=== PATIENT | male | born 1955 | race Caucasian/White ===

== ENCOUNTER → 2019-02-16 | Outpatient (CLI) | payer MEDICARE ==
[2015-12-12 11:00] VITALS: BP 129/82
[~2019-02-16] MED LIST: no home meds
== END | disposition home or self-care (01) ==
LOC: LAB 09:11
PROVIDERS: ATTEND Orthopaedic Surgery
DX: Z72.0 Tobacco use (principal); Z79.899 Other long term (current) drug therapy
CPT/HCPCS: 80307

== ENCOUNTER 2019-03-30 19:12 | Emergency (ER) | payer MEDICARE ==
[~2019-03-30] VITALS: Ht 165.1 cm; Wt 77.1 kg
[2019-03-30 20:09] LABS: BASO % 1 % (0-3); EOS # 0.2 x10^3/uL (0.0-0.7); EOS % 2 % (0-3); HEMATOCRIT 40.5 % (39.0-53.0); HEMOGLOBIN 13.5 g/dL (13.0-17.5); LYMPH # 2.4 x10^3/uL (1.0-4.8); LYMPH % 27 % (24-48); MEAN CORPUSCULAR HEMOGLOBIN 31 pg (25-35); MEAN CORPUSCULAR HGB CONC 33 g/dL (31-37); MEAN CORPUSCULAR VOLUME 93 fL (79-100); MONO # 0.7 x10^3/uL (0.0-1.1); MONO % 8 % (0-9); NEUT # 5.6 x10^3/uL (1.8-7.7); NEUT % 63 % (31-73); PLATELET COUNT 279 x10^3/uL (140-400); RED BLOOD COUNT 4.34 x10^6/uL (4.30-5.70); RED CELL DISTRIBUTION WIDTH 13.5 % (11.5-14.5); WHITE BLOOD COUNT 8.9 x10^3/uL (4.0-11.0)
[2019-03-30 20:17] LABS: CALCIUM 9.4 mg/dL (8.5-10.1); CREATININE 1.2 mg/dL (0.7-1.3); GFR 60.8; POTASSIUM 4.1 mmol/L (3.5-5.1)
[2019-03-30 20:18] LABS: PROTHROMBIN TIME PATIENT 12.2 SEC (11.7-14.0)
[2019-03-30 20:21] LABS: FECAL OB PT POSITIVE (NEG)
[2019-03-30 20:23] LABS: ALBUMIN 3.6 g/dL (3.4-5.0); ALBUMIN/GLOBULIN RATIO 1.1 (1.0-1.7); TOTAL BILIRUBIN 0.2 mg/dL (0.2-1.0)
[2019-03-30 21:00] VITALS: BP 118/77
--- NOTE | 2019-03-30 21:30 | PHYS DOC ---
Past Medical History Past Medical History: Other Additional Past Medical Histor: ulcerative colitis Past Surgical History: Cholecystectomy Alcohol Use: None Drug Use: Marijuana Adult General Chief Complaint Chief Complaint: BLOODY STOOL [facility] Patient is a 63 year old male who presents to the emergency department with complaints of diarrhea since March 122018. He states that for the last 2 weeks the diarrhea has been bloody. Patient reports a history of ulcerative colitis back in the 1980s that he took medications for until he no longer had health insurance. Patient states he had a colonoscopy 15 years ago that found no acute findings. He states that when the symptoms first began he experienced some lower abdominal cramping. Patient currently denies any pain. His only complaint is that he feels slightly fatigued. Patient states he also quit smoking cigarettes and marijuana on March 12, 2019. He denies any nausea, vomiting, fever, abdominal pain, chest pain, shortness breath, palpitations, dizziness, numbness, tingling, weakness, headaches, dysuria, hematuria, increased urinary frequency, or low back pain at this time. He currently rates his pain as 0 out of 10 on the pain scale.All other ROS is neg unless otherwise noted in HPI. Review of Systems Review of Systems See Above Allergies Allergies Allergies Coded Allergies Type Severity Reaction Last Updated Verified No Known Allergies Allergy Unknown 12/11/15 Yes Physical Exam Physical Exam See Above Constitutional: Well developed, well nourished, no acute distress, non-toxic appearance. [] HENT: Normocephalic, atraumatic, bilateral external ears normal, oropharynx moist, no oral exudates, nose normal. [] Eyes: PERRLA, EOMI, conjunctiva normal, no discharge. [] Neck: Normal range of motion, no stridor. [] Cardiovascular:Heart rate regular rhythm, no murmur [] Lungs & Thorax: Bilateral breath sounds clear to auscultation [] Abdomen: Bowel sounds normal, soft, no tenderness, no masses, no pulsatile masses. [] Skin: Warm, dry, no erythema, no rash. [] Back: No tenderness Extremities: No cyanosis, no clubbing, ROM intact, no edema. [] Neurologic: Alert and oriented X 3, no focal deficits noted. [] Psychologic: Affect normal, judgement normal, mood normal. [] Current Patient Data Vital Signs Vital Signs Date Time Temp Pulse Resp B/P (MAP) Pulse Ox O2 Delivery O2 Flow Rate FiO2 03/30/19 19:18 97.8 77 18 155/85 (108) 98 Room Air 97.8 Lab Values Laboratory Tests Test 03/30/19 19:50 03/30/19 20:00 Stool Occult Blood Positive (NEG) White Blood Count 8.9 x10^3/uL (4.0-11.0) Red Blood Count 4.34 x10^6/uL (4.30-5.70) Hemoglobin 13.5 g/dL (13.0-17.5) Hematocrit 40.5 % (39.0-53.0) Mean Corpuscular Volume 93 fL (79-100) Mean Corpuscular Hemoglobin 31 pg (25-35) Mean Corpuscular Hemoglobin Concent 33 g/dL (31-37) Red Cell Distribution Width 13.5 % (11.5-14.5) Platelet Count 279 x10^3/uL (140-400) Neutrophils (%) (Auto) 63 % (31-73) Lymphocytes (%) (Auto) 27 % (24-48) Monocytes (%) (Auto) 8 % (0-9) Eosinophils (%) (Auto) 2 % (0-3) Basophils (%) (Auto) 1 % (0-3) Neutrophils # (Auto) 5.6 x10^3/uL (1.8-7.7) Lymphocytes # (Auto) 2.4 x10^3/uL (1.0-4.8) Monocytes # (Auto) 0.7 x10^3/uL (0.0-1.1) Eosinophils # (Auto) 0.2 x10^3/uL (0.0-0.7) Basophils # (Auto) 0.0 x10^3/uL (0.0-0.2) Prothrombin Time 12.2 SEC (11.7-14.0) Prothrombin Time INR 0.9 (0.8-1.1) Sodium Level 142 mmol/L (136-145) Potassium Level 4.1 mmol/L (3.5-5.1) Chloride Level 105 mmol/L (98-107) Carbon Dioxide Level 26 mmol/L (21-32) Anion Gap 11 (6-14) Blood Urea Nitrogen 17 mg/dL (8-26) Creatinine 1.2 mg/dL (0.7-1.3) Estimated GFR (Cockcroft-Gault) 60.8 BUN/Creatinine Ratio 14 (6-20) Glucose Level 118 mg/dL (70-99) H Calcium Level 9.4 mg/dL (8.5-10.1) Total Bilirubin 0.2 mg/dL (0.2-1.0) Aspartate Amino Transferase (AST) 18 U/L (15-37) Alanine Aminotransferase (ALT) 33 U/L (16-63) Alkaline Phosphatase 87 U/L (46-116) Total Protein 7.0 g/dL (6.4-8.2) Albumin 3.6 g/dL (3.4-5.0) Albumin/Globulin Ratio 1.1 (1.0-1.7) Laboratory Tests 03/30/19 20:00 Laboratory Tests 03/30/19 20:00 EKG EKG [] Radiology/Procedures Radiology/Procedures [] Course & Med Decision Making Course & Med Decision Making Pertinent Labs and Imaging studies reviewed. (See chart for details) 2124- Talked with Dr. Gastelum about patient complaint. CBC, CMP, PT/INR are all unremarkable. Stool is positive for blood. VSS, NAD. Pt instructed to call Dr. Reyes office for follow up and further evaluation. Return to the ER if symptoms worsen. Pt verbalized an understanding of home care, medications, follow-up, and return to ED instructions and was in agreement with the plan of care. [] Dragon Disclaimer Dragon Disclaimer This electronic medical record was generated, in whole or in part, using a voice recognition dictation system. Departure Departure Impression: Primary Impression: Bloody stool Disposition: HOME, SELF-CARE Condition: STABLE Referrals: CANDIDA GASTELUM MD Patient Instructions: Bloody Stools, [id number] Additional Instructions: Call Dr. Gastelum's office for follow up. Return to the ER if your symptoms worsen. Scripts No Active Prescriptions or Reported Meds VON BROWN [employer]PER[facility]OR [facility] RO[facility] Mar 30, 2019 21:30
== END 2019-03-30 21:40 | disposition home or self-care (01) ==
LOC: ER 19:12
DX: K92.1 Melena (principal); R10.30 Lower abdominal pain, unspecified; R53.83 Other fatigue; Z87.891 Personal history of nicotine dependence; Z90.49 Acquired absence of other specified parts of digestive tract
CPT/HCPCS: 36415; 80053; 82274; 85025; 85610; 99284

== ENCOUNTER → 2019-04-21 | Outpatient (CLI) | payer MEDICARE ==
[2019-03-30 21:00] VITALS: BP 118/77
== END | disposition home or self-care (01) ==
LOC: LAB 09:11
PROVIDERS: ATTEND Orthopaedic Surgery
DX: Z72.0 Tobacco use (principal)

== ENCOUNTER → 2019-07-26 | Outpatient (CLI) | payer MEDICARE ==
[~2019-07-26] MED LIST changes: +ASPI325T8 PO
[2019-07-26 09:36] LABS: BASO % 1 % (0-3); EOS # 0.2 x10^3/uL (0.0-0.7); EOS % 2 % (0-3); HEMATOCRIT 47.9 % (39.0-53.0); HEMOGLOBIN 16.1 g/dL (13.0-17.5); LYMPH # 2.4 x10^3/uL (1.0-4.8); LYMPH % 27 % (24-48); MEAN CORPUSCULAR HEMOGLOBIN 30 pg (25-35); MEAN CORPUSCULAR HGB CONC 34 g/dL (31-37); MEAN CORPUSCULAR VOLUME 90 fL (79-100); MONO # 0.7 x10^3/uL (0.0-1.1); MONO % 8 % (0-9); NEUT # 5.6 x10^3/uL (1.8-7.7); NEUT % 63 % (31-73); PLATELET COUNT 237 x10^3/uL (140-400); RED BLOOD COUNT 5.31 x10^6/uL (4.30-5.70); RED CELL DISTRIBUTION WIDTH 13.2 % (11.5-14.5); WHITE BLOOD COUNT 8.8 x10^3/uL (4.0-11.0)
[2019-07-26 09:38] LABS: ALBUMIN 3.8 g/dL (3.4-5.0); CALCIUM 9.7 mg/dL (8.5-10.1); CREATININE 0.8 mg/dL (0.7-1.3); POTASSIUM 4.2 mmol/L (3.5-5.1)
[2019-07-26 09:58] LABS: PROTHROMBIN TIME PATIENT 12.2 SEC (11.7-14.0)
[2019-07-26 22:07] LABS: HEMOGLOBIN A1C 6.1 % (4.8-5.6)
== END | disposition home or self-care (01) ==
LOC: SURGPAT 13:02
PROVIDERS: ATTEND Orthopaedic Surgery
DX: Z01.818 Encounter for other preprocedural examination (principal); M17.12 Unilateral primary osteoarthritis, left knee
CPT/HCPCS: 36415; 80048; 82040; 82306; 83036; 85025; 85610; 85651; 85730; 87641

== ENCOUNTER → 2019-12-03 | Outpatient (CLI) | payer MEDICARE ==
[2019-08-06 05:47] VITALS: BP 134/72
[~2019-12-03] MED LIST changes: +ASPI325T11 PO; +CELE100C PO; +CEPH500C PO; +OXYC1TAB15 PO; +OXYC1TAB22 PO; +PIPE3.3734 IV; +VANC1.2514 IV; +VANC1.257 IV
[2019-12-03 11:37] LABS: BASO # 0.1 x10^3/uL (0.0-0.2); BASO % 1 % (0-3); EOS # 0.1 x10^3/uL (0.0-0.7); EOS % 1 % (0-3); HEMATOCRIT 41.9 % (39.0-53.0); HEMOGLOBIN 14.4 g/dL (13.0-17.5); LYMPH # 2.6 x10^3/uL (1.0-4.8); LYMPH % 25 % (24-48); MEAN CORPUSCULAR HEMOGLOBIN 30 pg (25-35); MEAN CORPUSCULAR HGB CONC 34 g/dL (31-37); MEAN CORPUSCULAR VOLUME 87 fL (79-100); MONO # 0.9 x10^3/uL (0.0-1.1); MONO % 8 % (0-9); NEUT # 6.9 x10^3/uL (1.8-7.7); NEUT % 65 % (31-73); PLATELET COUNT 410 x10^3/uL (140-400); RED BLOOD COUNT 4.81 x10^6/uL (4.30-5.70); RED CELL DISTRIBUTION WIDTH 13.9 % (11.5-14.5); WHITE BLOOD COUNT 10.5 x10^3/uL (4.0-11.0)
[2019-12-03 11:48] LABS: ALBUMIN 3.3 g/dL (3.4-5.0); CALCIUM 8.7 mg/dL (8.5-10.1); CREATININE 1.1 mg/dL (0.7-1.3); POTASSIUM 4.3 mmol/L (3.5-5.1)
[2019-12-03 11:50] LABS: PROTHROMBIN TIME PATIENT 12.6 SEC (11.7-14.0)
[2019-12-03 14:23] LABS: C-REACTIVE PROTEIN 21.9 mg/L (0-3.3)
[2019-12-04 01:10] LABS: HEMOGLOBIN A1C 6.5 % (4.8-5.6)
== END ==
LOC: SURGPAT 10:55
PROVIDERS: ATTEND Orthopaedic Surgery
DX: Z01.818 Encounter for other preprocedural examination (principal); Z11.59 Encounter for screening for other viral diseases; T84.54XA Infection and inflammatory reaction due to internal left knee prosthesis, initial encounter; D64.9 Anemia, unspecified; M17.12 Unilateral primary osteoarthritis, left knee; E16.2 Hypoglycemia, unspecified; Z79.899 Other long term (current) drug therapy; X58.XXXA Exposure to other specified factors, initial encounter; Y92.89 Other specified places as the place of occurrence of the external cause; Y93.89 Activity, other specified; Y99.8 Other external cause status
CPT/HCPCS: 36415; 80048; 82040; 82306; 83036; 85025; 85610; 85730; 86140; 87641; U0003

== ENCOUNTER 2019-12-07 07:07 | Inpatient (IN) | payer MEDICARE ==
[2019-12-07] VITALS (10 sets, daily range): BP systolic 117–173; BP diastolic 63–100
[~2019-12-07] VITALS: Ht 165.1 cm; Wt 78.5 kg
[~2019-12-07 07:07] MED LIST changes: +ACETAMINOPHEN 500 MG TABLET PO PRN; +CELECOXIB 100 MG CAPSULE. PO ONE; +IV RINGERS,LACTATED 1000ML 1,000 ML IV SCH; +ONDANSETRON PF 4 MG/2 ML VIAL. IV PRN; -OXYC1TAB22 PO; -PIPE3.3734 IV; +TRANEXAMIC ACID 1,000 MG in IV NS 50ML -- 1ST BAG INJ ONE; -VANC1.2514 IV; -VANC1.257 IV; +fentaNYL PF VIAL 100 MCG/2 ML VIAL IV PRN
[2019-12-07] MEDS ORDERED: TRANEXAMIC ACID 1,000 MG in IV NS 50ML -- 2ND BAG INJ ONE (08:00)
[2019-12-07] MEDS ORDERED: DEXAMETHASONE SOD PHOS 4 MG/ML VIAL ONE (08:02)
[2019-12-07] MEDS ORDERED: PROPOFOL 10 MG/ML (20ML) VIAL. IV ONE ×2 (08:02→09:30)
[2019-12-07] MEDS ORDERED: LIDOCAINE 2% PF 5 ML VIAL. ONE (08:02)
[2019-12-07] MEDS ORDERED: MIDAZOLAM HCL/PF 2 MG/2 ML VIAL. ONE (08:03)
[2019-12-07] MEDS ORDERED: ONDANSETRON PF 4 MG/2 ML VIAL. ONE (08:03)
[2019-12-07] MEDS ORDERED: fentaNYL PF VIAL 100 MCG/2 ML VIAL ONE ×4 (08:03→11:24)
--- NOTE | 2019-12-07 08:04 | NUR ---
pt took celecbrex dose at home this morning. hospital dose held.
[2019-12-07] MEDS ORDERED: TOBRAMYCIN POWDER 1.2 GM VIAL. ONE ×6 (09:17→09:18)
[2019-12-07] MEDS ORDERED: VANCOMYCIN 10GM VIAL for OR. ONE (09:18)
[2019-12-07] MEDS ORDERED: ESMOLOL 100 MG/10 ML VIAL. IVP ONE (09:50)
[2019-12-07] MEDS ORDERED: ePHEDrine PF IN SALINE 50 MG/10 ML SYRINGE. IV ONE (11:04)
--- NOTE | 2019-12-07 11:15 | PDOC4 ---
Operative Note Operative Note Date of Procedure: December 07, 2019 Pre-Op Diagnosis: Infection and inflammatory reaction due to internal left knee prosthesis ICD-10-CM Code T84.54 Post-Op Diagnosis: Infection and inflammatory reaction due to internal left knee prosthesis ICD-10-CM Code T84.54 Procedure: left knee, removal of prosthesis, total knee prosthesis, and insertion of methylmethacrylate antibiotic spacer CPT 01314 Surgeon: Jason Green MD Bead Inspector: Wm SPENCER Anesthesia: General EBL: 300 mL Specimens Obtained: Left knee synovial fluid for aerobic, anaerobic, fungal, and AFB Complications: none Drains: none Tourniquet: 40 minutes at 300 mmHg Findings: Cloudy joint fluid consistent with infection. The components were not loose. 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 Recent cultures and knee synovial aspirate were obtained in the office and showed 60,000 WBCs and microbial panel consistent with Staphylococcus and elevated C-reactive protein in the synovial fluid. The alpha defensins were elevated, consistent with infection. Final cultures are pending but the knee appears inflamed and I recommended surgical treatment before the final cultures are obtained. I recommended removal of the total knee prosthesis and placement of antibiotic spacer. This is usually done as the first stage of a two-stage revision for infection. We discussed the potential risks of surgery such as bleeding, ongoing infection, neurovascular injury, fracture, bone loss, or other potential surgical or anesthetic complications. One risk is that infection persists after this first spacer, and then another debridement and another antibiotic spacer could be needed in a couple of months. Hopefully, however the infection will clear with todays procedure and additional six seeks of intravenous antibiotics. The final stage of surgery would be removal of the spacer and final revision knee arthroplasty reimplantation. The patient stated understanding of the plan as well as the risks, benefits, and alternatives. The alternative of leaving an infected total knee in place and trying to treat it with antibiotic suppression can be life-threatening if sepsis occurs and, amputation would also be a risk with further nonoperative treatment. PROCEDURE IN DETAIL: The patient was identified in the preoperative holding area. The correct left knee was marked by me. The patient was taken to the operating room where general anesthetic was used. A tourniquet was used on the upper thigh. Preoperative antibiotics were given intravenously. A time-out procedure was performed. The limb was prepared in sterile fashion with Chloraprep solution and sterile drapes were applied with an impervious stockinette over the lower limb. All the operating team wore the personal exhaust ventilated hoods. The limb was elevated to exsanguinate it and the tourniquet was inflated to 300 mmHg. A midline incision was used. Bovie electrocautery was used for hemostasis. Sharp dissection was used. The capsule was incised sharply and inflammatory fluid was noted and this fluid was sent for cultures. The polyethylene component was removed with a Hohmann without difficulty. The femur was exposed. The edges of the femoral component were outlined with the cautery. I used a combination of straight osteotomes, reciprocating saw, and a mallet and tamp to remove the femoral component. The femoral component was was able to be removed without significant bone loss. The tibial component was removed next. Again, the osteotomes, reciprocating saw, tamp and a mallet were used. The tibial component was removed without difficulty, and with minimal bone removal. The remaining intramedullary cement from the tibia was removed. The patella was reflected. The previously resurfaced patella was cut with an oscillating saw. The plastic pegs which remained in the patellar bone were now removed with drill bits, curettes, and careful removal of the remaining cement. Devitalized bone was removed, and a synovectomy was also performed removing any abnormal-appearing synovial tissue. No remaining cement was seen, and all the cement from the intramedullary canal of the tibia was removed with cement osteotomes and a grasper. The tibial canal and the intra-articular knee joint were washed thoroughly with the [place] interpulse pump servicer supervisor and 1 L of Bactisure . Next 3 L of saline was irrigated with the Bo InterPulse pump servicer supervisor. After thorough lavage of the knee, the knee was dried thoroughly. Three packages of rally HV bone cement were hand mixed, along with 10 grams of vancomycin and 7.2 grams of tobramycin, in a hand mixing bowl. Once the cement reached the doughy stage, a cement spacer was formed, with the knee in extension. The soft tissue was reapproximated with towel clips while the cement hardened. Tranexamic acid was given intravenously. The tourniquet was released. Bovie electrocautery was used for hemostasis. The capsule was reapproximated with #1 PDS sutures. The subcutaneous tissue was closed with 2-0 PDS by my bookkeeping assistant. The skin edges were reapproximated with tomeka by my bookkeeping assistant. An Acticoat dressing was placed on the incision followed by a MARCOS single use negative pressure wound therapy dressing. There were no apparent complications. Needle and sponge counts were correct. A knee immobilizer was applied. The patient returned to the recovery room in stable condition. JASON GREEN MD Dec 07, 2019 11:15
[2019-12-07] MEDS: fentaNYL PF VIAL 100 MCG/2 ML VIAL IV PRN ×2 (11:20→11:25)
[2019-12-07] MEDS ORDERED: IV NORMAL SALINE 1000ML BAG 1,000 ML IV SCH (11:23)
--- NOTE | 2019-12-07 11:23 | PDOC1 ---
History and Physical Date of Admission Date of Admission DATE: 12/07/19 TIME: 11:16 Identification/Chief Complaint Chief Complaint Infected left total knee arthroplasty Source Source: Chart review, Patient History of Present Illness History of Present Illness Mr. Gomez had left total knee arthroplasty on 08/03/2019. There was extensive synovitis at the time of surgery, which led to a large hemarthrosis, and he was taken to the operating room on 08/06/2023 removal of the intra-articular hemat tyree. There was no evidence of infection at that time. More recently he has developed increased swelling pain and erythema. Recent office aspiration shows greater than 60,000 white blood cells, the synovial fluid is positive for alpha defensins, and the preliminary microbial panel, (I believe DNA panel) is positive for Staphylococcus. Final cultures are pending but all of his signs point to deep infection. I recommended explantation and he is here for removal of the total knee and placement of antibiotic spacer. Past Medical History Cardiovascular: No pertinent hx Pulmonary: No pertinent hx GI: No pertinent hx Heme/Onc: No pertinent hx Hepatobiliary: No pertinent hx Psych: No pertinent hx Rheumatologic: No pertinent hx Infectious disease: No pertinent hx Renal/: No pertinent hx Endocrine: No pertinent hx Past Surgical History Past Surgical History: Cholecystectomy Family History Family History: Diabetes, Heart Disease Social History ALCOHOL: none Drugs: None Current Medications Current Medications Current Medications Ondansetron HCl (Zofran) 4 mg PRN Q6HRS PRN IV NAUSEA/VOMITING; Start 12/07/19 at 07:00; Stop 12/08/19 at 06:59 Fentanyl Citrate (Fentanyl 2ml Vial) 25 mcg PRN Q5MIN PRN IV MILD PAIN 1-3; Start 12/07/19 at 07:00; Stop 12/08/19 at 06:59 Fentanyl Citrate (Fentanyl 2ml Vial) 50 mcg PRN Q5MIN PRN IV MODERATE TO SEVERE PAIN; Start 12/07/19 at 07:00; Stop 12/08/19 at 06:59 Morphine Sulfate (Morphine Sulfate) 1 mg PRN Q10MIN PRN IV SEVERE PAIN 7-10; Start 12/07/19 at 07:00; Stop 12/08/19 at 06:59 Ringer's Solution 1,000 ml @ 30 mls/hr Q24H IV Last administered on 12/07/19at 08:03; Start 12/07/19 at 07:00; Stop 12/07/19 at 18:59 Hydromorphone HCl (Dilaudid) 0.5 mg PRN Q10MIN PRN IV SEV PAIN, Second choice; Start 12/07/19 at 07:00; Stop 12/08/19 at 06:59 Prochlorperazine Edisylate (Compazine) 5 mg PACU PRN PRN IV NAUSEA, MRX1; Start 12/07/19 at 07:00; Stop 12/08/19 at 06:59 Acetaminophen (Tylenol) 1,000 mg 1X PREOP PRN PO PRIOR TO PROCEDURE Last administered on 12/07/19at 07:41; Start 12/07/19 at 06:00; Stop 12/07/19 at 18:00 Cefazolin Sodium/ Dextrose 50 ml @ 100 mls/hr 1X PREOP PRN IV PRIOR TO PRO CEDURE Last administered on 12/07/19at 08:54; Start 12/07/19 at 06:00; Stop 12/07/19 at 18:00 Tranexamic Acid 1000 mg/Sodium Chloride 60 ml @ 60 mls/hr 1X PERIOP ONCE INJ Last administered on 12/07/19at 09:10; Start 12/07/19 at 06:00; Stop 12/07/19 at 06:59; Status DC Tranexamic Acid 1000 mg/Sodium Chloride 60 ml @ 60 mls/hr 1X PERIOP ONCE INJ Last administered on 12/07/19at 10:15; Start 12/07/19 at 08:00; Stop 12/07/19 at 08:59; Status DC Celecoxib (CeleBREX) 400 mg ONCE ONCE PO ; Start 12/07/19 at 06:00; Stop 12/07/19 at 06:01; Status DC Propofol (Diprivan) 200 mg STK-MED ONCE IV ; Start 12/07/19 at 08:02; Stop 12/07/19 at 08:02; Status DC Lidocaine HCl (Lidocaine Pf 2% Vial) 5 ml STK-MED ONCE .ROUTE ; Start 12/07/19 at 08:02; Stop 12/07/19 at 08:03; Status DC Dexamethasone Sodium Phosphate (Decadron) 4 mg STK-MED ONCE .ROUTE ; Start 12/07/19 at 08:02; Stop 12/07/19 at 08:03; Status DC Ondansetron HCl (Zofran) 4 mg STK-MED ONCE .ROUTE ; Start 12/07/19 at 08:03; Stop 12/07/19 at 08:03; Status DC Midazolam HCl (Versed) 2 mg STK-MED ONCE .ROUTE ; Start 12/07/19 at 08:03; Stop 12/07/19 at 08:03; Status DC Fentanyl Citrate (Fentanyl 2ml Vial) 100 mcg STK-MED ONCE .ROUTE ; Start 12/07/19 at 08:03; Stop 12/07/19 at 08:04; Status DC Tobramycin Sulfate (Tobramycin Powder) 1.2 gm STK-MED ONCE .ROUTE Last administered on 12/07/19at 09:35; Start 12/07/19 at 09:17; Stop 12/07/19 at 09: 17; Status DC Tobramycin Sulfate (Tobramycin Powder) 1.2 gm STK-MED ONCE .ROUTE Last administered on 12/07/19at 09:35; Start 12/07/19 at 09:17; Stop 12/07/19 at 09:17; Status DC Tobramycin Sulfate (Tobramycin Powder) 1.2 gm STK-MED ONCE .ROUTE Last admi nistered on 12/07/19at 09:35; Start 12/07/19 at 09:17; Stop 12/07/19 at 09:17; Status DC Tobramycin Sulfate (Tobramycin Powder) 1.2 gm STK-MED ONCE .ROUTE Last administered on 12/07/19at 09:35; Start 12/07/19 at 09:17; Stop 12/07/19 at 09:18; Status DC Tobramycin Sulfate (Tobramycin Powder) 1.2 gm STK-MED ONCE .ROUTE Last administered on 12/07/19at 09:35; Start 12/07/19 at 09:18; Stop 12/07/19 at 09:18; Status DC Tobramycin Sulfate (Tobramycin Powder) 1.2 gm STK-MED ONCE .ROUTE Last administered on 12/07/19at 09:35; Start 12/07/19 at 09:18; Stop 12/07/19 at 09:18; Status DC Vancomycin HCl (VANCO for OR ONLY) 10 gm STK-MED ONCE .ROUTE Last administered on 12/07/19at 09:35; Start 12/07/19 at 09:18; Stop 12/07/19 at 09:19; Status DC Fentanyl Citrate (Fentanyl 2ml Vial) 100 mcg STK-MED ONCE .ROUTE ; Start 12/07/19 at 09:30; Stop 12/07/19 at 09:30; Status DC Propofol (Diprivan) 200 mg STK-MED ONCE IV ; Start 12/07/19 at 09:30; Stop 12/07/19 at 09:30; Status DC Esmolol HCl (Brevibloc) 100 mg STK-MED ONCE IVP ; Start 12/07/19 at 09:50; Stop 12/07/19 at 09:50; Status DC Fentanyl Citrate (Fentanyl 2ml Vial) 100 mcg STK-MED ONCE .ROUTE ; Start 12/07/19 at 10:06; Stop 12/07/19 at 10:06; Status DC Ephedrine Sulfate (ePHEDrine PF IN SALINE SYRINGE) 50 mg STK-MED ONCE IV ; Start 12/07/19 at 11:04; Stop 12/07/19 at 11:04; Status DC Active Scripts Active Aspirin Ec (Aspirin) 325 Mg Tablet.dr 325 Mg PO BID 30 Days take one 325 mg enteric coated aspirin by mouth twice a day for 30 days Reported Cephalexin 500 Mg Capsule 1 Cap PO QID Allergies Allergies: Coded Allergies: No Known Allergies (Verified Allergy, Unknown, 12/07/19) ROS General: No: Chills Hematological and Lymphatic: No: Blood Clots Respiratory: No: Shortness of breath Cardiovascular: No Chest Pain Musculoskeletal: Yes Joint Pain Physical Exam General: Alert, Cooperative HEENT: Atraumatic Lungs: Normal air movement Heart: RRR Extremities: Other (The left knee shows an intact total knee scar, however there is some erythema swelling and inflammation of the knee. There was no drainage. There is slight tenderness. There is no malalignment. Range of motion is still about 5 to 100 degrees without difficulty. There is a recurrent effusion. 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 I discussed his case with Dr. Valencia, infectious disease. The recommendation from Dr. Valencia as well as the recommended course based on the current literature is explantation and antibiotic spacer. There is significant infection and I do not believe irrigation and debridement with polyethylene exchange at this point would be successful. I discussed the staged procedures to the patient, with explantation and cement spacer today, and likely 6 weeks of IV antibiotics through a PICC line. I would consider reimplantation in about 2 to 3 months if future aspiration off antibiotics shows no further infection. I discussed the possibility of additional cement spacer in 2 months if infection does not appear cleared at that time. We discussed the option of chronic suppression but I do not believe that helpful for such a young patient, and the risks such as sepsis, open wounds, or even amputation. The patient stated understanding of the risks benefits and alternatives and desires to proceed with explantation of the prosthesis and antibiotic methylmethacrylate spacer today. Justicifation of Admission Dx: Justifications for Admission: Justification of Admission Dx: Yes Sepsis: Infection JASON JOSE MD Dec 07, 2019 11:23
[2019-12-07] MEDS ORDERED: PROCHLORPERAZINE 10 MG/2 ML VIAL. ONE (11:27)
[2019-12-07] MEDS ORDERED: 0.9 % SODIUM CHLORIDE 10 ML DISP.SYRIN. IV PRN (11:30)
[2019-12-07] MEDS ORDERED: MORPHINE SULFATE 4 MG/ML VIAL. IVP PRN (11:30)
[2019-12-07] MEDS ORDERED: DEXTROSE 50% 25 GM / 50ML DISP.SYRIN. IV PRN (11:30)
[2019-12-07] MEDS ORDERED: PROCHLORPERAZINE 5 MG TABLET. PO PRN (11:30)
[2019-12-07] MEDS ORDERED: diphenhydrAMINE 50 MG/ML VIAL IVP PRN (11:30)
[2019-12-07] MEDS ORDERED: METOCLOPRAMIDE HCL 10 MG/2 ML VIAL. IVP PRN (11:30)
[2019-12-07] MEDS ORDERED: MORPHINE SULFATE 2 MG/ML VIAL. IVP PRN (11:30)
[2019-12-07] MEDS ORDERED: fentaNYL PF VIAL 100 MCG/2 ML VIAL IVP PRN ×2 (11:30)
[2019-12-07] MEDS ORDERED: CALCIUM CARBONATE 500 MG TAB.CHEW PO PRN (11:30)
[2019-12-07] MEDS: MORPHINE SULFATE 2 MG/ML VIAL. IV PRN ×2 (11:40→11:50)
[2019-12-07] MEDS: PROCHLORPERAZINE 10 MG/2 ML VIAL. IV PRN ×2 (11:42→12:00)
[2019-12-07] MEDS ORDERED: HYDROmorphone 2 MG/ML VIAL ONE (11:51)
[2019-12-07] MEDS: HYDROmorphone 2 MG/ML VIAL IV PRN ×4 (11:55→12:27)
--- NOTE | 2019-12-07 12:05 | RAD ---
Examination: KNEE LEFT 2V History: Reason: POST OP / Spl. Instructions: / History: Comparison/Correlation: 08/19/2019 left knee x-ray exam Findings: Frontal and lateral views of the left knee were obtained. Soft tissue gas and midline anteriorly located skin tomeka consistent with immediate postoperative status noted. Interval removal of the left knee joint arthroplasty is evident. There is a large quantity of cement density material noted involving the tibiofemoral articulation and within the patellofemoral compartment extending superiorly into the suprapatellar bursa. The distal femur is not fully abut the cement density material at its anterior femoral condylar level. Knee joint effusion also seen. No displaced fractures are noted. Impression: Interval removal of left knee joint arthroplasty. Large cement density material is present involving the knee joint along the distribution of the procedure. Arthroplasty as well as superiorly into the suprapatellar bursal level. Electronically signed by: Arnie Garcia MD (12/07/2019 12:02 PM) [id number]
[2019-12-07] MEDS ORDERED: PROMETHAZINE 12.5 MG TABLET. PO ONE (12:30)
[2019-12-07] MEDS: oxyCODONE/APAP 10/325 1 TAB TABLET PO PRN ×2 (13:25→20:03)
[2019-12-07] MEDS: INSULIN LISPRO 300 UNITS/3 ML VIAL. SQ SCH (16:24)
[2019-12-07] MEDS: FERROUS SULFATE 325 MG TABLET. PO SCH (16:27)
[2019-12-07] MEDS: ONDANSETRON PF 4 MG/2 ML VIAL. IVP SCH (16:37)
[2019-12-07] MEDS: ONDANSETRON ODT 4 MG TAB.RAPDIS. PO SCH (16:37)
[2019-12-07] MEDS ORDERED: VANCOMYCIN 1 GM in IV NORMAL SALINE 250ML 250 ML IV SCH (17:30)
[2019-12-07] MEDS: PIPERACILLIN/TAZOBACTAM 3.375 GM in IV NORMAL SALINE 50ML 50 ML IV SCH (17:55)
[2019-12-07 18:26] LABS: BASO # 0.1 x10^3/uL (0.0-0.2); BASO % 1 % (0-3); EOS % 0 % (0-3); HEMATOCRIT 39.9 % (39.0-53.0); HEMOGLOBIN 13.5 g/dL (13.0-17.5); LYMPH # 0.9 x10^3/uL (1.0-4.8); LYMPH % 7 % (24-48); MEAN CORPUSCULAR HEMOGLOBIN 30 pg (25-35); MEAN CORPUSCULAR HGB CONC 34 g/dL (31-37); MEAN CORPUSCULAR VOLUME 88 fL (79-100); MONO # 0.2 x10^3/uL (0.0-1.1); MONO % 2 % (0-9); NEUT # 11.4 x10^3/uL (1.8-7.7); NEUT % 91 % (31-73); PLATELET COUNT 345 x10^3/uL (140-400); RED BLOOD COUNT 4.54 x10^6/uL (4.30-5.70); RED CELL DISTRIBUTION WIDTH 13.7 % (11.5-14.5); WHITE BLOOD COUNT 12.5 x10^3/uL (4.0-11.0)
[2019-12-07] MEDS ORDERED: VANCOMYCIN 2 GM in IV NORMAL SALINE 500ML BAG 500 ML IV ONE (18:30)
[2019-12-07 18:40] LABS: CALCIUM 8.2 mg/dL (8.5-10.1); CREATININE 1.3 mg/dL (0.7-1.3); GFR 55.2; POTASSIUM 4.6 mmol/L (3.5-5.1)
[2019-12-07 18:44] LABS: ALBUMIN 2.9 g/dL (3.4-5.0); ALBUMIN/GLOBULIN RATIO 0.8 (1.0-1.7); C-REACTIVE PROTEIN 9.9 mg/L (0-3.3); TOTAL BILIRUBIN 0.1 mg/dL (0.2-1.0); TOTAL PROTEIN 6.7 g/dL (6.4-8.2)
[2019-12-07 18:57] LABS: % BANDS 9 % (0-9); % LYMPHS 1 % (24-48); % MONOS 2 % (0-10); % SEGS 88 % (35-66); PLT ESTIMATE ADEQUATE (ADEQUATE)
[2019-12-07] MEDS: ASPIRIN ENTERIC COATED 325 MG TABLET.DR. PO SCH (20:03)
[2019-12-07] MEDS: ZOLPIDEM 5 MG TABLET. PO PRN (20:53)
[2019-12-07] MEDS: VANCOMYCIN PER PHARMACY MC PRN (21:03)
--- NOTE | 2019-12-07 21:03 | NUR ---
Pharmacy Vancomycin Dosing Note S:Consulted to monitor and dose vancomycin started 12/07/19. O:SUKH ÁLVAREZ is a 64 year old M with PJI . Height: 5 feet, 5 inches Weight: 78.944996 kg Plato Body Weight: 61.50 Adjusted Body Weight: 68.10 Dosing Weight: Actual Other Antibiotics: ZOSYN LABS: Last BUN: Last Creatinine: 1.3 Creatinine Clearance: 53 mL/min Last WBC: Last Procalcitonin: Tmax (past 24 hours): Microbiology: I/O: Drug Levels: Last level: on at Last dose given 12/07/19 at 2100 Vancomycin Dosing: Loading Dose: 2000 mg x1 Dosing Weight: Actual Target Trough: 15-20 A: Based on: WEIGHT, CRCL~52 P: 1. INITIATE Vancomycin 1250 mg IV q12h AFTER 2000 MG LOADING DOSE 2. Follow up Trough level on 12/09/19 at 0830 3. Pharmacy will continue to monitor, follow and adjust therapy as needed. SHAYNA BASS [facility], 12/07/19 [id number]
[2019-12-08] MEDS: PIPERACILLIN/TAZOBACTAM 3.375 GM in IV NORMAL SALINE 50ML 50 ML IV SCH ×5 (00:10→23:43)
[2019-12-08 03:00] VITALS: BP 102/63
[2019-12-08 05:05] LABS: BASO % 0 % (0-3); EOS % 0 % (0-3); HEMOGLOBIN 11.7 g/dL (13.0-17.5); LYMPH # 1.1 x10^3/uL (1.0-4.8); LYMPH % 8 % (24-48); MEAN CORPUSCULAR HEMOGLOBIN 29 pg (25-35); MEAN CORPUSCULAR HGB CONC 33 g/dL (31-37); MEAN CORPUSCULAR VOLUME 88 fL (79-100); MONO # 0.7 x10^3/uL (0.0-1.1); MONO % 5 % (0-9); NEUT # 12.1 x10^3/uL (1.8-7.7); NEUT % 86 % (31-73); PLATELET COUNT 304 x10^3/uL (140-400); RED BLOOD COUNT 3.99 x10^6/uL (4.30-5.70)
[2019-12-08] MEDS: oxyCODONE/APAP 10/325 1 TAB TABLET PO PRN ×4 (05:46→22:27)
[2019-12-08] MEDS: ONDANSETRON PF 4 MG/2 ML VIAL. IVP SCH ×3 (06:00→12:00)
[2019-12-08] MEDS ORDERED: MAGNESIUM HYDROXIDE 2,400 MG/30 ML ORAL.SUSP. PO PRN (06:00)
[2019-12-08] MEDS: ONDANSETRON ODT 4 MG TAB.RAPDIS. PO SCH ×3 (06:00→12:00)
[2019-12-08 06:20] LABS: ALBUMIN 2.5 g/dL (3.4-5.0); ALBUMIN/GLOBULIN RATIO 0.8 (1.0-1.7); CALCIUM 7.9 mg/dL (8.5-10.1); CREATININE 1.1 mg/dL (0.7-1.3); POTASSIUM 4.2 mmol/L (3.5-5.1); TOTAL BILIRUBIN 0.1 mg/dL (0.2-1.0); TOTAL PROTEIN 5.8 g/dL (6.4-8.2)
[2019-12-08 07:15] VITALS: BP 130/71
[2019-12-08] MEDS: INSULIN LISPRO 300 UNITS/3 ML VIAL. SQ SCH ×3 (08:00→17:00)
[2019-12-08] MEDS: VANCOMYCIN 1.25 GM in IV NORMAL SALINE 250ML 250 ML IV SCH ×2 (08:06→20:46)
[2019-12-08] MEDS: SENNOSIDES/DOCUSATE 8.6/50MG TABLET. PO SCH (08:09)
[2019-12-08] MEDS: MULTIVITAMIN with MINERAL TABLET. PO SCH (08:10)
[2019-12-08] MEDS: CELECOXIB 100 MG CAPSULE. PO SCH (08:10)
[2019-12-08] MEDS: FERROUS SULFATE 325 MG TABLET. PO SCH ×2 (08:10→17:00)
[2019-12-08] MEDS: ASPIRIN ENTERIC COATED 325 MG TABLET.DR. PO SCH ×2 (08:10→20:46)
--- NOTE | 2019-12-08 09:43 | PDOC ---
Infectious Disease Note Subjective: Subjective Patient seen and examined ID consult dictated Vital Signs: Vital Signs Vital Signs Date Time Temp Pulse Resp B/P (MAP) Pulse Ox O2 Delivery O2 Flow Rate FiO2 12/08/19 08:00 Room Air 12/08/19 07:15 98.0 68 20 130/71 (90) 96 98.0 12/07/19 16:13 2.0 Medications: Inpatient Meds: Current Medications Medications (Trade) Dose Ordered Sig/Taryn Start Time Stop Time Status Last Admin Dose Admin Acetaminophen (Tylenol) 1,000 mg 1X PREOP PRN 12/07/19 06:00 12/07/19 18:00 DC 12/07/19 07:41 1,000 MG Aspirin (Ecotrin) 325 mg BID 12/07/19 21:00 12/08/19 08:10 325 MG Bisacodyl (Dulcolax Supp) 10 mg 1X PRN PRN 12/08/19 16:00 12/09/19 15:59 Calcium Carbonate/ Glycine (Tums) 500 mg PRN QID PRN 12/07/19 11:30 Cefazolin Sodium/ Dextrose 50 ml @ 100 mls/hr Q6H 12/07/19 15:00 12/07/19 17:40 DC 12/07/19 14:52 100 MLS/HR Celecoxib (CeleBREX) 200 mg DAILY 12/08/19 09:00 01/07/20 08:59 12/08/19 08:10 200 MG Dexamethasone Sodium Phosphate (Decadron) 4 mg STK-MED ONCE 12/07/19 08:02 12/07/19 08:03 DC Dextrose (Dextrose 50%-Water Syringe) 12.5 gm PRN Q15MIN PRN 12/07/19 11:30 Diphenhydramine HCl (Benadryl) 25 mg PRN Q6HRS PRN 12/07/19 11:30 Ephedrine Sulfate (ePHEDrine PF IN SALINE SYRINGE) 50 mg STK-MED ONCE 12/07/19 11:04 12/07/19 11:04 DC Esmolol HCl (Brevibloc) 100 mg STK-MED ONCE 12/07/19 09:50 12/07/19 09:50 DC Fentanyl Citrate (Fentanyl 2ml Vial) 50 mcg PRN Q1HR PRN 12/07/19 11:30 Ferrous Sulfate (Feosol) 325 mg BIDWMEALS 12/07/19 17:00 12/08/19 08:10 325 MG Hydromorphone HCl (Dilaudid) 2 mg STK-MED ONCE 12/07/19 11:51 12/07/19 11:51 DC Insulin Human Lispro (HumaLOG) 0-7 UNITS TIDWMEALS 12/07/19 17:00 Lidocaine HCl (Lidocaine Pf 2% Vial) 5 ml STK-MED ONCE 12/07/19 08:02 12/07/19 08:03 DC Magnesium Hydroxide (Milk Of Magnesia) 2,400 mg 1X PRN PRN 12/08/19 06:00 12/09/19 05:59 Metoclopramide HCl (Reglan Vial) 10 mg PRN Q4HRS PRN 12/07/19 11:30 Midazolam HCl (Versed) 2 mg STK-MED ONCE 12/07/19 08:03 12/07/19 08:03 DC Morphine Sulfate (Morphine Sulfate) 4 mg PRN Q1HR PRN 12/07/19 11:30 Multivitamins (Thera M Plus) 1 tab DAILY 12/08/19 09:00 12/08/19 08:10 1 TAB Ondansetron HCl (Zofran Odt) 4 mg PRN Q6HRS PRN 12/08/19 12:00 Ondansetron HCl (Zofran) 4 mg PRN Q6HRS PRN 12/08/19 12:00 Oxycodone/ Acetaminophen (Percocet 10/325) 2 tab PRN Q4HRS PRN 12/07/19 12:00 12/08/19 05:46 2 TAB Piperacillin Sod/ Tazobactam Sod 3.375 gm/Sodium Chloride 50 ml @ 100 mls/hr Q6HRS 12/07/19 18:00 12/08/19 05:40 100 MLS/HR Prochlorperazine Edisylate (Compazine) 10 mg STK-MED ONCE 12/07/19 11:27 12/07/19 11:27 DC Prochlorperazine Maleate (Compazine) 10 mg PRN Q4HRS PRN 12/07/19 11:30 Promethazine HCl (Phenergan) 25 mg 1X ONCE 12/07/19 12:30 12/07/19 12:31 DC Propofol (Diprivan) 200 mg STK-MED ONCE 12/07/19 09:30 12/07/19 09:30 DC Ringer's Solution 1,000 ml @ 30 mls/hr Q24H 12/07/19 07:00 12/07/19 18:59 DC 12/07/19 08:03 30 MLS/HR Senna/Docusate Sodium (Senna Plus) 1 tab DAILY 12/08/19 09:00 12/08/19 08:09 1 TAB Sodium Chloride (Normal Saline Flush) 10 ml QSHIFT PRN 12/07/19 11:30 Tobramycin Sulfate (Tobramycin Powder) 1.2 gm STK-MED ONCE 12/07/19 09:18 12/07/19 09:18 DC 12/07/19 09:35 1.2 GM Tranexamic Acid 1000 mg/Sodium Chloride 60 ml @ 60 mls/hr 1X PERIOP ONCE 12/07/19 08:00 12/07/19 08:59 DC 12/07/19 10:15 60 MLS/HR Vancomycin HCl (VANCO for OR ONLY) 10 gm STK-MED ONCE 12/07/19 09:18 12/07/19 09:19 DC 12/07/19 09:35 10 GM Vancomycin HCl (Vanco Per Pharmacy) 1 each PRN DAILY PRN 12/07/19 17:45 12/07/19 21:03 1 EACH Vancomycin HCl (Vancomycin Trough Level) 1 each 1X ONCE 12/09/19 08:30 12/09/19 08:31 Vancomycin HCl 1.25 gm/Sodium Chloride 250 ml @ 167 mls/hr Q12H 12/08/19 09:00 12/08/19 08:06 167 MLS/HR Vancomycin HCl 1 gm/Sodium Chloride 250 ml @ 250 mls/hr Q12H 12/07/19 17:30 UNV Vancomycin HCl 2 gm/Sodium Chloride 500 ml @ 250 mls/hr ONCE ONCE 12/07/19 18:30 12/07/19 20:29 DC 12/07/19 20:46 250 MLS/HR Zolpidem Tartrate (Ambien) 5 mg PRN QHS PRN 12/07/19 11:30 12/07/19 20:53 5 MG Labs: Lab Laboratory Tests Test 12/07/19 16:22 12/07/19 18:15 12/07/19 20:35 12/08/19 04:09 Glucose (Fingerstick) 144 mg/dL (70-99) 226 mg/dL (70-99) White Blood Count 12.5 x10^3/uL (4.0-11.0) 14.0 x10^3/uL (4.0-11.0) Red Blood Count 4.54 x10^6/uL (4.30-5.70) 3.99 x10^6/uL (4.30-5.70) Hemoglobin 13.5 g/dL (13.0-17.5) 11.7 g/dL (13.0-17.5) Hematocrit 39.9 % (39.0-53.0) 35.0 % (39.0-53.0) Mean Corpuscular Volume 88 fL (79-100) 88 fL (79-100) Mean Corpuscular Hemoglobin 30 pg (25-35) 29 pg (25-35) Mean Corpuscular Hemoglobin Concent 34 g/dL (31-37) 33 g/dL (31-37) Red Cell Distribution Width 13.7 % (11.5-14.5) 14.0 % (11.5-14.5) Platelet Count 345 x10^3/uL (140-400) 304 x10^3/uL (140-400) Neutrophils (%) (Auto) 91 % (31-73) 86 % (31-73) Lymphocytes (%) (Auto) 7 % (24-48) 8 % (24-48) Monocytes (%) (Auto) 2 % (0-9) 5 % (0-9) Eosinophils (%) (Auto) 0 % (0-3) 0 % (0-3) Basophils (%) (Auto) 1 % (0-3) 0 % (0-3) Neutrophils # (Auto) 11.4 x10^3/uL (1.8-7.7) 12.1 x10^3/uL (1.8-7.7) Lymphocytes # (Auto) 0.9 x10^3/uL (1.0-4.8) 1.1 x10^3/uL (1.0-4.8) Monocytes # (Auto) 0.2 x10^3/uL (0.0-1.1) 0.7 x10^3/uL (0.0-1.1) Eosinophils # (Auto) 0.0 x10^3/uL (0.0-0.7) 0.0 x10^3/uL (0.0-0.7) Basophils # (Auto) 0.1 x10^3/uL (0.0-0.2) 0.0 x10^3/uL (0.0-0.2) Segmented Neutrophils % 88 % (35-66) Band Neutrophils % 9 % (0-9) Lymphocytes % 1 % (24-48) Monocytes % 2 % (0-10) Platelet Estimate Adequate (ADEQUATE) Sodium Level 136 mmol/L (136-145) 137 mmol/L (136-145) Potassium Level 4.6 mmol/L (3.5-5.1) 4.2 mmol/L (3.5-5.1) Chloride Level 101 mmol/L (98-107) 103 mmol/L (98-107) Carbon Dioxide Level 27 mmol/L (21-32) 25 mmol/L (21-32) Anion Gap 8 (6-14) 9 (6-14) Blood Urea Nitrogen 12 mg/dL (8-26) 13 mg/dL (8-26) Creatinine 1.3 mg/dL (0.7-1.3) 1.1 mg/dL (0.7-1.3) Estimated GFR (Cockcroft-Gault) 55.2 67.0 BUN/Creatinine Ratio 9 (6-20) 12 (6-20) Glucose Level 194 mg/dL (70-99) 147 mg/dL (70-99) Calcium Level 8.2 mg/dL (8.5-10.1) 7.9 mg/dL (8.5-10.1) Total Bilirubin 0.1 mg/dL (0.2-1.0) 0.1 mg/dL (0.2-1.0) Aspartate Amino Transf (AST/SGOT) 18 U/L (15-37) 16 U/L (15-37) Alanine Aminotransferase (ALT/SGPT) 23 U/L (16-63) 19 U/L (16-63) Alkaline Phosphatase 85 U/L (46-116) 74 U/L (46-116) C-Reactive Protein, Quantitative 9.9 mg/L (0-3.3) Total Protein 6.7 g/dL (6.4-8.2) 5.8 g/dL (6.4-8.2) Albumin 2.9 g/dL (3.4-5.0) 2.5 g/dL (3.4-5.0) Albumin/Globulin Ratio 0.8 (1.0-1.7) 0.8 (1.0-1.7) Test 12/08/19 07:11 Glucose (Fingerstick) 159 mg/dL (70-99) Objective: Assessment: Left total knee arthroplasty explantation of hardware with antibiotic spacer placement December 07, 2019 Status post synovial aspirate left prosthetic joint 11/25/[address] Benjamin's office Left DJD Leukocytosis Anemia DJD Poor dentition Plan: Plan of Care Continue IV Vanco and Zosyn Monitor renal functions close Vancomycin dosing per pharmacy protocol Follow-up intraoperative cultures Wound care as directed discussed with nursing staff Thank you ARVIND PRIEST MD Dec 08, 2019 09:43
--- NOTE | 2019-12-08 10:00 | NUR ---
Pt got up with therapy and dressing saturated dripping down leg. MARCOS dressing removed. Incision cleansed with ChloraPrep, 4x4, ABD dressing, Kerlix, curtis wrapped and with immobilizer brace. Cont. monitor.
[2019-12-08 11:00] VITALS: BP_SYST 111; BP_SYST 143; BP_DIAS 64; BP_DIAS 66
[2019-12-08] MEDS: VANCOMYCIN PER PHARMACY MC PRN (11:24)
[2019-12-08] MEDS ORDERED: ONDANSETRON PF 4 MG/2 ML VIAL. IVP PRN (12:00)
[2019-12-08] MEDS ORDERED: ONDANSETRON ODT 4 MG TAB.RAPDIS. PO PRN (12:00)
[2019-12-08 14:55] VITALS: BP 134/90
[2019-12-08] MEDS ORDERED: BISACODYL 10 MG SUPP.RECT. PR PRN (16:00)
--- NOTE | 2019-12-08 16:55 | PDOC ---
PROGRESS NOTES Subjective Subjective Feeling ok. We discussed his elevated blood sugars yesterday. Dr. Watson his primary care doctor had mentioned that he was running some high sugars at times as an outpatient. Objective Vital Signs Vital Signs Date Time Temp Pulse Resp B/P (MAP) Pulse Ox O2 Delivery O2 Flow Rate FiO2 12/08/19 14:55 98.6 58 18 134/90 (105) 97 Room Air 98.6 12/07/19 16:13 2.0 Physical Exam Dressing had quite a bit of bloody drainage was changed. The calf is soft and nontender. Neurovascularly intact. Labs Laboratory Tests Test 12/07/19 16:22 12/07/19 18:15 12/07/19 20:35 12/08/19 04:09 Glucose (Fingerstick) 144 mg/dL (70-99) 226 mg/dL (70-99) White Blood Count 12.5 x10^3/uL (4.0-11.0) 14.0 x10^3/uL (4.0-11.0) Red Blood Count 4.54 x10^6/uL (4.30-5.70) 3.99 x10^6/uL (4.30-5.70) Hemoglobin 13.5 g/dL (13.0-17.5) 11.7 g/dL (13.0-17.5) Hematocrit 39.9 % (39.0-53.0) 35.0 % (39.0-53.0) Mean Corpuscular Volume 88 fL (79-100) 88 fL (79-100) Mean Corpuscular Hemoglobin 30 pg (25-35) 29 pg (25-35) Mean Corpuscular Hemoglobin Concent 34 g/dL (31-37) 33 g/dL (31-37) Red Cell Distribution Width 13.7 % (11.5-14.5) 14.0 % (11.5-14.5) Platelet Count 345 x10^3/uL (140-400) 304 x10^3/uL (140-400) Neutrophils (%) (Auto) 91 % (31-73) 86 % (31-73) Lymphocytes (%) (Auto) 7 % (24-48) 8 % (24-48) Monocytes (%) (Auto) 2 % (0-9) 5 % (0-9) Eosinophils (%) (Auto) 0 % (0-3) 0 % (0-3) Basophils (%) (Auto) 1 % (0-3) 0 % (0-3) Neutrophils # (Auto) 11.4 x10^3/uL (1.8-7.7) 12.1 x10^3/uL (1.8-7.7) Lymphocytes # (Auto) 0.9 x10^3/uL (1.0-4.8) 1.1 x10^3/uL (1.0-4.8) Monocytes # (Auto) 0.2 x10^3/uL (0.0-1.1) 0.7 x10^3/uL (0.0-1.1) Eosinophils # (Auto) 0.0 x10^3/uL (0.0-0.7) 0.0 x10^3/uL (0.0-0.7) Basophils # (Auto) 0.1 x10^3/uL (0.0-0.2) 0.0 x10^3/uL (0.0-0.2) Segmented Neutrophils % 88 % (35-66) Band Neutrophils % 9 % (0-9) Lymphocytes % 1 % (24-48) Monocytes % 2 % (0-10) Platelet Estimate Adequate (ADEQUATE) Sodium Level 136 mmol/L (136-145) 137 mmol/L (136-145) Potassium Level 4.6 mmol/L (3.5-5.1) 4.2 mmol/L (3.5-5.1) Chloride Level 101 mmol/L (98-107) 103 mmol/L (98-107) Carbon Dioxide Level 27 mmol/L (21-32) 25 mmol/L (21-32) Anion Gap 8 (6-14) 9 (6-14) Blood Urea Nitrogen 12 mg/dL (8-26) 13 mg/dL (8-26) Creatinine 1.3 mg/dL (0.7-1.3) 1.1 mg/dL (0.7-1.3) Estimated GFR (Cockcroft-Gault) 55.2 67.0 BUN/Creatinine Ratio 9 (6-20) 12 (6-20) Glucose Level 194 mg/dL (70-99) 147 mg/dL (70-99) Calcium Level 8.2 mg/dL (8.5-10.1) 7.9 mg/dL (8.5-10.1) Total Bilirubin 0.1 mg/dL (0.2-1.0) 0.1 mg/dL (0.2-1.0) Aspartate Amino Transf (AST/SGOT) 18 U/L (15-37) 16 U/L (15-37) Alanine Aminotransferase (ALT/SGPT) 23 U/L (16-63) 19 U/L (16-63) Alkaline Phosphatase 85 U/L (46-116) 74 U/L (46-116) C-Reactive Protein, Quantitative 9.9 mg/L (0-3.3) Total Protein 6.7 g/dL (6.4-8.2) 5.8 g/dL (6.4-8.2) Albumin 2.9 g/dL (3.4-5.0) 2.5 g/dL (3.4-5.0) Albumin/Globulin Ratio 0.8 (1.0-1.7) 0.8 (1.0-1.7) Test 12/08/19 07:11 12/08/19 11:38 12/08/19 16:50 Glucose (Fingerstick) 159 mg/dL (70-99) 105 mg/dL (70-99) 90 mg/dL (70-99) Laboratory Tests Test 12/07/19 18:15 12/07/19 20:35 12/08/19 04:09 12/08/19 07:11 White Blood Count 12.5 x10^3/uL (4.0-11.0) 14.0 x10^3/uL (4.0-11.0) Red Blood Count 4.54 x10^6/uL (4.30-5.70) 3.99 x10^6/uL (4.30-5.70) Hemoglobin 13.5 g/dL (13.0-17.5) 11.7 g/dL (13.0-17.5) Hematocrit 39.9 % (39.0-53.0) 35.0 % (39.0-53.0) Mean Corpuscular Volume 88 fL (79-100) 88 fL (79-100) Mean Corpuscular Hemoglobin 30 pg (25-35) 29 pg (25-35) Mean Corpuscular Hemoglobin Concent 34 g/dL (31-37) 33 g/dL (31-37) Red Cell Distribution Width 13.7 % (11.5-14.5) 14.0 % (11.5-14.5) Platelet Count 345 x10^3/uL (140-400) 304 x10^3/uL (140-400) Neutrophils (%) (Auto) 91 % (31-73) 86 % (31-73) Lymphocytes (%) (Auto) 7 % (24-48) 8 % (24-48) Monocytes (%) (Auto) 2 % (0-9) 5 % (0-9) Eosinophils (%) (Auto) 0 % (0-3) 0 % (0-3) Basophils (%) (Auto) 1 % (0-3) 0 % (0-3) Neutrophils # (Auto) 11.4 x10^3/uL (1.8-7.7) 12.1 x10^3/uL (1.8-7.7) Lymphocytes # (Auto) 0.9 x10^3/uL (1.0-4.8) 1.1 x10^3/uL (1.0-4.8) Monocytes # (Auto) 0.2 x10^3/uL (0.0-1.1) 0.7 x10^3/uL (0.0-1.1) Eosinophils # (Auto) 0.0 x10^3/uL (0.0-0.7) 0.0 x10^3/uL (0.0-0.7) Basophils # (Auto) 0.1 x10^3/uL (0.0-0.2) 0.0 x10^3/uL (0.0-0.2) Segmented Neutrophils % 88 % (35-66) Band Neutrophils % 9 % (0-9) Lymphocytes % 1 % (24-48) Monocytes % 2 % (0-10) Platelet Estimate Adequate (ADEQUATE) Sodium Level 136 mmol/L (136-145) 137 mmol/L (136-145) Potassium Level 4.6 mmol/L (3.5-5.1) 4.2 mmol/L (3.5-5.1) Chloride Level 101 mmol/L (98-107) 103 mmol/L (98-107) Carbon Dioxide Level 27 mmol/L (21-32) 25 mmol/L (21-32) Anion Gap 8 (6-14) 9 (6-14) Blood Urea Nitrogen 12 mg/dL (8-26) 13 mg/dL (8-26) Creatinine 1.3 mg/dL (0.7-1.3) 1.1 mg/dL (0.7-1.3) Estimated GFR (Cockcroft-Gault) 55.2 67.0 BUN/Creatinine Ratio 9 (6-20) 12 (6-20) Glucose Level 194 mg/dL (70-99) 147 mg/dL (70-99) Calcium Level 8.2 mg/dL (8.5-10.1) 7.9 mg/dL (8.5-10.1) Total Bilirubin 0.1 mg/dL (0.2-1.0) 0.1 mg/dL (0.2-1.0) Aspartate Amino Transf (AST/SGOT) 18 U/L (15-37) 16 U/L (15-37) Alanine Aminotransferase (ALT/SGPT) 23 U/L (16-63) 19 U/L (16-63) Alkaline Phosphatase 85 U/L (46-116) 74 U/L (46-116) C-Reactive Protein, Quantitative 9.9 mg/L (0-3.3) Total Protein 6.7 g/dL (6.4-8.2) 5.8 g/dL (6.4-8.2) Albumin 2.9 g/dL (3.4-5.0) 2.5 g/dL (3.4-5.0) Albumin/Globulin Ratio 0.8 (1.0-1.7) 0.8 (1.0-1.7) Glucose (Fingerstick) 226 mg/dL (70-99) 159 mg/dL (70-99) Test 12/08/19 11:38 12/08/19 16:50 Glucose (Fingerstick) 105 mg/dL (70-99) 90 mg/dL (70-99) Imaging Report reviewed and images independently reviewed. Satisfactory cement spacer. I believe the time of surgery this was all within full contact of the femur but does not appear fully stuck to the femur at this time. This should not affect the antibiotic elution, and the patient remained in full extension with a knee immobilizer for gait today without difficulty. Assessment Assessment POD#1 after total knee explantation. The outpatient cultures showed staph epidermidis. The cell count was quite high, and other factors tested from the outpatient aspiration are consistent with deep prosthetic infection. He will require 6 weeks of IV antibiotics, regardless of the current operative cultures. Plan Plan of Care I will order a PICC line. He will require 6 weeks of IV antibiotics regardless of the current culture results. He might be able to go home tomorrow if ID is satisfied with the previous culture result sensitivities. I am going to order another hemoglobin A1c. If elevated I would consider hospitalist consult and treatment for elevated glucose. The patient agrees with that plan. Justicifation of Admission Dx: Justifications for Admission: Justification of Admission Dx: Yes Sepsis: Infection JASON JOSE MD Dec 08, 2019 16:54
[2019-12-08 19:00] VITALS: BP 137/87
[2019-12-08] MEDS: LACTOBACILLUS RHAMNOSUS GG 1 CAPSULE. PO SCH (20:46)
[2019-12-08 23:00] VITALS: BP 139/7
[2019-12-08] MEDS: ZOLPIDEM 5 MG TABLET. PO PRN (23:46)
--- NOTE | 2019-12-09 01:12 | CONS ---
DATE OF CONSULTATION: 12/08/2019 REFERRING PHYSICIAN: Rei Green MD REASON FOR CONSULTATION: Antibiotic management for infected left total knee arthroplasty. HISTORY OF PRESENT ILLNESS: A 64-year-old male with history of left knee osteoarthritis who underwent left total knee arthroplasty on 08/03/[address] Green. The patient underwent I and D for removal of intra-articular hematoma on 08/09/2019. The patient had been on Keflex for a couple of months, which he ran out about a month ago. Since 3 weeks, he started noticing increasing swelling, pain and erythema to a degree that he had difficulty with ambulation. He denies any fevers, chills, nausea, vomiting, diarrhea, abdominal pain. He underwent a synovial aspiration on 11/25/2019 from the left knee, which showed alpha defensin positive, CRP 21.4, RBC 17,000, total nucleated cells 60,145, neutrophil percent 96, Synovasure neutrophil elastase positive. No crystals identified. Synovasure microbial ID panel positive for Staphylococcus, negative for P. acne, Tiffanie panel and Enterococcus panel. Fluid culture prelim reports, no growth to date. Dr. Green recommended explantation with hardware removal of the total knee and placement of antibiotic spacer, which he underwent yesterday with removal of total knee prosthesis and insertion of methyl methacrylate antibiotic spacer, which had 10 grams of vancomycin and 7.2 grams of tobramycin. I got baseline labs on the patient yesterday and started him on empiric IV vancomycin and Zosyn. The patient received intraoperative and postoperative cefazolin, which I discontinued. Today, the patient says pain is under control. He denies any fevers, chills, nausea, vomiting, diarrhea, abdominal pain, shortness of breath, headache, sore throat, rash, or other joint pain. PAST MEDICAL HISTORY: None. PAST SURGICAL HISTORY: Cholecystectomy in 2009, left knee arthroplasty 08/03/2019 and followup I and D on 08/06/2019 with a hematoma. SOCIAL HISTORY: The patient was a smoker, quit smoking 2019 for knee replacement surgery. No alcohol. 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 FAMILY HISTORY: As per HPI. CURRENT MEDICATIONS: IV vancomycin and Zosyn. Other medications reviewed in medication list. Bisacodyl, Zofran, celecoxib, senna, multivitamin, magnesium hydroxide, aspirin, insulin, ferrous sulfate, oxycodone, calcium carbonate, zolpidem, metoclopramide, prochlorperazine p.r.n., diphenhydramine. REVIEW OF SYSTEMS: Negative except for above in HPI. PHYSICAL EXAMINATION: VITAL SIGNS: Temperature 98, pulse 68, respiratory rate 20, blood pressure 130/71, oxygen saturation 96% on room air. GENERAL: Alert and oriented x 3 male lying in bed comfortably, in no acute distress. HEENT: Normocephalic, atraumatic, anicteric. No thrush. Poor dentition. LUNGS: Clear bilaterally. No wheezing. NECK: Supple, no JVD. NO LAD, NO JVD HEART: S1, S2. No gallops or murmurs. ABDOMEN: Soft, nontender, nondistended. EXTREMITIES: Left knee dressing and brace in place, did not take it down due to recent postop. Moves toes. Right lower extremity without edema, clubbing or cyanosis. DERMATOLOGIC: Warm, dry. No generalized rash. Multiple tattoos. NEUROLOGIC: Alert and oriented x 3, grossly nonfocal. PSYCHIATRIC: Cooperative, appropriate mood and affect. LABORATORY DATA: WBC 14, was 12.5; hemoglobin 11.7; hematocrit 35; platelets 304; neutrophil 86%. Sodium 137, potassium 4.2, chloride 103, bicarbonate 25, BUN 13, creatinine 1.1, glucose 147, calcium 7.9, albumin 2.5. COVID-19 negative. Synovasure microbial panel positive for Staphylococcus. Fluid culture negative from 11/25/2019. Synovasure 11/25/2019, alpha defensin positive. CRP 21.4, RBC 17,000, [place] [address], neutrophil 96%. Synovasure neutrophil elastase positive. Crystals, none found. IMPRESSION: 1. Left prosthetic joint infection, status post synovial aspirate by Dr. Green, 11/25/2019, with abnormal Synovasure results as above. Faxed copy in chart. Panel shows Staphylococcus.Cultures reported negative so far. No crystals identified. 2. Status post left knee explantation with antibiotic spacer placement on 12/07/2019, Cultures pending at this time. 3. History of left total knee arthroplasty, 08/03/2019. 4. Status post incision and drainage for hematoma in 08/09/2019. The patient was on p.o. Keflex since last surgery until a month ago. 6. Left knee degenerative joint disease, status post cortisone injections and viscous supplementation in the past. 7. Status post cholecystectomy. 8. Leukocytosis, likely postoperative. 9. Anemia, likely acute blood loss. 10. Hypoglycemia. 11. Poor dentition. RECOMMENDATIONS: 1. Continue IV vancomycin and Zosyn. 2. Follow up renal functions closely. 3. Vancomycin dosing and adjustment per pharmacy protocol. 4. Follow up intraoperative cultures. 5. Local wound care as directed. Discussed with nursing staff. Thank you, Dr. Green, for consulting Infectious Disease to participate in this patient's care. If you have any questions, do not hesitate to contact me. ARVIND PRIEST MD DR: FRANCOIS/regina JOB#: [id number] / [id number] ISHAAN
[2019-12-09 03:00] VITALS: BP 150/82
[2019-12-09] MEDS: PIPERACILLIN/TAZOBACTAM 3.375 GM in IV NORMAL SALINE 50ML 50 ML IV SCH ×3 (05:54→17:43)
[2019-12-09 07:15] VITALS: BP 115/54
[2019-12-09] MEDS: INSULIN LISPRO 300 UNITS/3 ML VIAL. SQ SCH ×3 (07:59→17:00)
[2019-12-09] MEDS: FERROUS SULFATE 325 MG TABLET. PO SCH ×2 (08:18→17:42)
[2019-12-09] MEDS: LACTOBACILLUS RHAMNOSUS GG 1 CAPSULE. PO SCH ×2 (08:18→21:00)
[2019-12-09] MEDS: MULTIVITAMIN with MINERAL TABLET. PO SCH (08:19)
[2019-12-09] MEDS: oxyCODONE/APAP 10/325 1 TAB TABLET PO PRN ×3 (08:19→22:30)
[2019-12-09] MEDS: SENNOSIDES/DOCUSATE 8.6/50MG TABLET. PO SCH (08:19)
[2019-12-09] MEDS: ASPIRIN ENTERIC COATED 325 MG TABLET.DR. PO SCH ×2 (08:20→21:00)
[2019-12-09] MEDS: CELECOXIB 100 MG CAPSULE. PO SCH (08:22)
[2019-12-09 09:22] LABS: HEMATOCRIT 38.4 % (39.0-53.0); HEMOGLOBIN 12.8 g/dL (13.0-17.5)
[2019-12-09 09:51] LABS: VANC TR 14.4 mcg/mL (10.0-20.0)
[2019-12-09] MEDS: VANCOMYCIN 1.25 GM in IV NORMAL SALINE 250ML 250 ML IV SCH ×2 (09:52→21:00)
[2019-12-09 11:12] VITALS: BP 142/69
[2019-12-09] MEDS: VANCOMYCIN PER PHARMACY MC PRN (11:53)
--- NOTE | 2019-12-09 11:55 | NUR ---
Pharmacy Vancomycin Dosing Note S: Consulted to monitor and dose vancomycin started 12/07/19. O: SUKH ÁLVAREZ is a 64 year old M with PJI . Other Antibiotics: ZOSYN LABS: Last BUN: 13 Last Creatinine: 1.1 Creatinine Clearance: 64 mL/min Last WBC: 14 Last Procalcitonin: -- Tmax (past 24 hours): AFEBRILE Microbiology: 12/06: synovial fluid: no organisms seen Last Trough level: 14.4 on 12/09/19 at 0830 Vancomycin Dosing: Dosing Weight: Actual Target Trough: 15-20 A: Based on: THERAPEUTIC TROUGH P: 1. Continue Vancomycin 1250 mg IV q12h 2. Follow up Trough level in 5-7 days or if renal function changes 3. Pharmacy will continue to monitor, follow and adjust therapy as needed. NEVAEH MURRAY RPH, 12/09/19 [id number]
--- NOTE | 2019-12-09 13:35 | PDOC ---
Infectious Disease Note Subjective Subjective Comfortable, denies much knee pain No F/C/N/V/SOA ROS ROS as mentioned above Vital Sign Vital Signs Vital Signs Date Time Temp Pulse Resp B/P (MAP) Pulse Ox O2 Delivery O2 Flow Rate FiO2 12/09/19 11:12 97.8 57 18 142/69 (93) 97 Room Air 97.8 Physical Exam PHYSICAL EXAM GENERAL: Sitting in the chair, legs elevated, alert in NAD HEENT: No thrush. Poor dentition. LUNGS: Clear bilaterally. No wheezing. NECK: Supple HEART: S1, S2. ABDOMEN: Soft, nontender EXTREMITIES: Left knee dressing and brace in place, did not take it down. DP + Right lower extremity without edema, clubbing or cyanosis. DERMATOLOGIC: Warm, dry. No generalized rash. Multiple tattoos. NEUROLOGIC: Alert and oriented x 3, grossly nonfocal. PSYCHIATRIC: Cooperative, appropriate mood and affect. PIV Labs Lab Laboratory Tests Test 12/08/19 16:50 12/08/19 20:44 12/09/19 07:21 12/09/19 08:40 Glucose (Fingerstick) 90 mg/dL (70-99) 152 mg/dL (70-99) 93 mg/dL (70-99) Hemoglobin 12.8 g/dL (13.0-17.5) Hematocrit 38.4 % (39.0-53.0) Mean Corpuscular Hemoglobin Concent 34 g/dL (31-37) Vancomycin Level Trough 14.4 mcg/mL (10.0-20.0) Vancomycin Last Dose Date 12/08/19 Vancomycin Last Dose Time 2100 Test 12/09/19 11:22 Glucose (Fingerstick) 89 mg/dL (70-99) Micro 12/06. Synovial fluid GRAM STAIN Final Final NO ORGANISMS SEEN. SQUAMOUS EPI CELL:NOT APPLICABLE PMN (WBCs):MODERATE ANAEROBIC-AEROBIC CULTURE Preliminary Preliminary No Growth on 12/09/19 at 1126 Objective Assessment Left prosthetic joint infection, -s/p synovial aspirate by Dr. Green, 11/25/2019. Synovasure panel positive for staphylococcus. No crystals identified. Culture + MRSE Status post left knee explantation with antibiotic spacer placement on 12/07/2019, Intra-op cultures neg to date History of left total knee arthroplasty, 08/03/2019. Status post incision and drainage for hematoma in 08/09/2019. The patient was on p.o. Keflex since last surgery until a month ago. Left knee degenerative joint disease, status post cortisone injections and viscous supplementation in the past. Status post cholecystectomy. Leukocytosis, likely postoperative. Anemia, likely acute blood loss. Hypoglycemia. Poor dentition. Plan Plan of Care Zosyn Vancomycin dosing per pharmacy protocol. Trough 14.4 Monitor renal functions closely Probiotics Follow-up intraoperative cultures, neg so far Wound care as directed PICC in [facility] 11/24 COCO sen to Gent/Zyvox/Tetracycline/Clinda f/u cult D/w Attending Co-Sign Attending Co-Sign The patient was seen and interviewed as well as examined at the bedside. The chart was reviewed. The case was discussed. Agree with the plan of care. BINDU CASEY APRN Dec 09, 2019 13:35 HERB MCKINNON MD Dec 09, 2019 18:40
[2019-12-09] MEDS ORDERED: LIDOCAINE WITH 8.4% SOD BICARB 3 ML DISP.SYRIN. ONE (14:35)
[2019-12-09 15:00] VITALS: BP 149/90
[2019-12-09] MEDS ORDERED: LIDOCAINE WITH 8.4% SOD BICARB 3 ML DISP.SYRIN. INJ ONE (15:30)
--- NOTE | 2019-12-09 15:47 | RAD ---
Procedure: Upper extremity PICC line placement Clinical Indication: Adult male requiring antibiotic infusion therapy Sedation: Local anesthesia only was provided Antibiotics: None Fluoro Time: 1 minute, images: 1 Contrast: None Sterility: All elements of maximal sterile barrier technique including the use of a cap, mask, sterile gown, sterile gloves, large sterile sheet, appropriate hand hygiene, and 2% chlorhexidine for cutaneous antisepsis (or acceptable alternative antiseptic per current guidelines) were followed for this procedure. Consent: The procedure was explained in its entirety to the patient or the patients designated medical office representative by a member of the treatment team, including a discussion of the risks, benefits and commonly accepted alternatives to the procedure, as well as the expected consequences of no therapy whatsoever. Discussion of the risks included, but was not limited to, those that are most frequent and those that are rare but possibly severe or life-threatening, as well as the possibility of unforeseen complications. Technique and Findings: Following informed consent, the patient was prepped and draped in the usual sterile fashion. Ultrasound interrogation of the right arm revealed patency and compressibility of the right basilic vein. A hard copy ultrasound image was recorded. 1% Lidocaine was used to achieve local anesthesia and a 21-gauge micropuncture needle was used to gain access to the targeted vein. The needle was exchanged over wire for a 5 Italian peel-away sheath which was used to deploy a PICC line under fluoroscopic guidance such that the distal tip resided at the cavoatrial junction. The catheter flushed and aspirated with ease and was sutured to the skin. Complications: No immediate Impression: 1. Ultrasound guided PICC line placement as described.
--- NOTE | 2019-12-09 16:55 | PDOC ---
PROGRESS NOTES Subjective Subjective He and his nurse report that he was distressed and upset earlier today because his insurance company is refusing to pay for outpatient intravenous antibiotics. He is feeling better now but is still concerned. Objective Vital Signs Vital Signs Date Time Temp Pulse Resp B/P (MAP) Pulse Ox O2 Delivery O2 Flow Rate FiO2 12/09/19 15:00 97.3 60 20 149/90 (109) 98 Room Air 97.3 12/07/19 16:13 2.0 Physical Exam There was bloody drainage again but the dressing was changed and the dressing is now dry. The calf is soft and nontender. The knee immobilizer is in place. Labs Laboratory Tests Test 12/07/19 18:15 12/07/19 20:35 12/08/19 04:09 12/08/19 07:11 White Blood Count 12.5 x10^3/uL (4.0-11.0) 14.0 x10^3/uL (4.0-11.0) Red Blood Count 4.54 x10^6/uL (4.30-5.70) 3.99 x10^6/uL (4.30-5.70) Hemoglobin 13.5 g/dL (13.0-17.5) 11.7 g/dL (13.0-17.5) Hematocrit 39.9 % (39.0-53.0) 35.0 % (39.0-53.0) Mean Corpuscular Volume 88 fL (79-100) 88 fL (79-100) Mean Corpuscular Hemoglobin 30 pg (25-35) 29 pg (25-35) Mean Corpuscular Hemoglobin Concent 34 g/dL (31-37) 33 g/dL (31-37) Red Cell Distribution Width 13.7 % (11.5-14.5) 14.0 % (11.5-14.5) Platelet Count 345 x10^3/uL (140-400) 304 x10^3/uL (140-400) Neutrophils (%) (Auto) 91 % (31-73) 86 % (31-73) Lymphocytes (%) (Auto) 7 % (24-48) 8 % (24-48) Monocytes (%) (Auto) 2 % (0-9) 5 % (0-9) Eosinophils (%) (Auto) 0 % (0-3) 0 % (0-3) Basophils (%) (Auto) 1 % (0-3) 0 % (0-3) Neutrophils # (Auto) 11.4 x10^3/uL (1.8-7.7) 12.1 x10^3/uL (1.8-7.7) Lymphocytes # (Auto) 0.9 x10^3/uL (1.0-4.8) 1.1 x10^3/uL (1.0-4.8) Monocytes # (Auto) 0.2 x10^3/uL (0.0-1.1) 0.7 x10^3/uL (0.0-1.1) Eosinophils # (Auto) 0.0 x10^3/uL (0.0-0.7) 0.0 x10^3/uL (0.0-0.7) Basophils # (Auto) 0.1 x10^3/uL (0.0-0.2) 0.0 x10^3/uL (0.0-0.2) Segmented Neutrophils % 88 % (35-66) Band Neutrophils % 9 % (0-9) Lymphocytes % 1 % (24-48) Monocytes % 2 % (0-10) Platelet Estimate Adequate (ADEQUATE) Sodium Level 136 mmol/L (136-145) 137 mmol/L (136-145) Potassium Level 4.6 mmol/L (3.5-5.1) 4.2 mmol/L (3.5-5.1) Chloride Level 101 mmol/L (98-107) 103 mmol/L (98-107) Carbon Dioxide Level 27 mmol/L (21-32) 25 mmol/L (21-32) Anion Gap 8 (6-14) 9 (6-14) Blood Urea Nitrogen 12 mg/dL (8-26) 13 mg/dL (8-26) Creatinine 1.3 mg/dL (0.7-1.3) 1.1 mg/dL (0.7-1.3) Estimated GFR (Cockcroft-Gault) 55.2 67.0 BUN/Creatinine Ratio 9 (6-20) 12 (6-20) Glucose Level 194 mg/dL (70-99) 147 mg/dL (70-99) Calcium Level 8.2 mg/dL (8.5-10.1) 7.9 mg/dL (8.5-10.1) Total Bilirubin 0.1 mg/dL (0.2-1.0) 0.1 mg/dL (0.2-1.0) Aspartate Amino Transf (AST/SGOT) 18 U/L (15-37) 16 U/L (15-37) Alanine Aminotransferase (ALT/SGPT) 23 U/L (16-63) 19 U/L (16-63) Alkaline Phosphatase 85 U/L (46-116) 74 U/L (46-116) C-Reactive Protein, Quantitative 9.9 mg/L (0-3.3) Total Protein 6.7 g/dL (6.4-8.2) 5.8 g/dL (6.4-8.2) Albumin 2.9 g/dL (3.4-5.0) 2.5 g/dL (3.4-5.0) Albumin/Globulin Ratio 0.8 (1.0-1.7) 0.8 (1.0-1.7) Glucose (Fingerstick) 226 mg/dL (70-99) 159 mg/dL (70-99) Test 12/08/19 11:38 12/08/19 12:46 12/08/19 16:50 12/08/19 20:44 Glucose (Fingerstick) 105 mg/dL (70-99) 90 mg/dL (70-99) 152 mg/dL (70-99) Urine Cotinine Positive ng/mL (Ilpvtv=229) Drug Screen Comment Comment (.) Test 12/09/19 07:21 12/09/19 08:40 12/09/19 11:22 12/09/19 16:38 Glucose (Fingerstick) 93 mg/dL (70-99) 89 mg/dL (70-99) 82 mg/dL (70-99) Hemoglobin 12.8 g/dL (13.0-17.5) Hematocrit 38.4 % (39.0-53.0) Mean Corpuscular Hemoglobin Concent 34 g/dL (31-37) Vancomycin Level Trough 14.4 mcg/mL (10.0-20.0) Vancomycin Last Dose Date 12/08/19 Vancomycin Last Dose Time 2100 Laboratory Tests Test 12/08/19 20:44 12/09/19 07:21 12/09/19 08:40 12/09/19 11:22 Glucose (Fingerstick) 152 mg/dL (70-99) 93 mg/dL (70-99) 89 mg/dL (70-99) Hemoglobin 12.8 g/dL (13.0-17.5) Hematocrit 38.4 % (39.0-53.0) Mean Corpuscular Hemoglobin Concent 34 g/dL (31-37) Vancomycin Level Trough 14.4 mcg/mL (10.0-20.0) Vancomycin Last Dose Date 12/08/19 Vancomycin Last Dose Time 2100 Test 12/09/19 16:38 Glucose (Fingerstick) 82 mg/dL (70-99) Assessment Assessment POD# 2 after total knee explant and antibiotic spacer. Operative cultures still negative, but the prior cultures showed staph epidermidis sensitive to antibiotics except for erythromycin and oxacillin. Plan Plan of Care Discharge planning, IV antibiotics. Social work consult. His most recent hemog lobin A1c was 6.5. I may ask the hospitalist to visit with him and see if we could start him on metformin or other oral hypoglycemic. Justicifation of Admission Dx: Justifications for Admission: Justification of Admission Dx: Yes Sepsis: Infection JASON JOSE MD Dec 09, 2019 16:55
[2019-12-09 19:00] VITALS: BP 143/92
[2019-12-09] MEDS: ZOLPIDEM 5 MG TABLET. PO PRN (22:30)
[2019-12-09 23:01] VITALS: BP 139/88
[2019-12-10 01:08] LABS: HEMOGLOBIN A1C 6.5 % (4.8-5.6)
[2019-12-10 03:04] VITALS: BP 132/87
[2019-12-10 04:37] LABS: HEMATOCRIT 37.9 % (39.0-53.0); HEMOGLOBIN 12.6 g/dL (13.0-17.5)
[2019-12-10] MEDS: PIPERACILLIN/TAZOBACTAM 3.375 GM in IV NORMAL SALINE 50ML 50 ML IV SCH ×4 (06:28→16:52)
[2019-12-10 07:00] VITALS: BP 161/82
[2019-12-10] MEDS: INSULIN LISPRO 300 UNITS/3 ML VIAL. SQ SCH ×3 (08:00→16:34)
[2019-12-10] MEDS: ASPIRIN ENTERIC COATED 325 MG TABLET.DR. PO SCH ×2 (08:25→21:27)
[2019-12-10] MEDS: LACTOBACILLUS RHAMNOSUS GG 1 CAPSULE. PO SCH ×2 (08:25→21:28)
[2019-12-10] MEDS: CELECOXIB 100 MG CAPSULE. PO SCH (08:25)
[2019-12-10] MEDS: oxyCODONE/APAP 10/325 1 TAB TABLET PO PRN ×4 (08:25→21:28)
[2019-12-10] MEDS: SENNOSIDES/DOCUSATE 8.6/50MG TABLET. PO SCH (08:26)
[2019-12-10] MEDS: FERROUS SULFATE 325 MG TABLET. PO SCH ×2 (08:26→16:52)
[2019-12-10] MEDS: MULTIVITAMIN with MINERAL TABLET. PO SCH (08:26)
[2019-12-10] MEDS: VANCOMYCIN 1.25 GM in IV NORMAL SALINE 250ML 250 ML IV SCH ×2 (08:45→21:28)
[2019-12-10 11:00] VITALS: BP 158/77
--- NOTE | 2019-12-10 11:12 | PDOC ---
Infectious Disease Note Subjective Subjective Comfortable, denies increase knee pain Getting ready to take a walker with physical therapy No F/C/N/V/SOA ROS ROS as mentioned above Vital Sign Vital Signs Vital Signs Date Time Temp Pulse Resp B/P (MAP) Pulse Ox O2 Delivery O2 Flow Rate FiO2 12/10/19 09:17 95 Room Air 12/10/19 07:00 98.4 62 18 161/82 (108) 98.4 12/09/19 20:00 2.0 Physical Exam PHYSICAL EXAM GENERAL: Sitting in the chair, legs elevated, alert in NAD HEENT: Oral cavity pink, moist. No thrush. Poor dentition. LUNGS: Clear bilaterally. No wheezing. NECK: Supple HEART: S1, S2. ABDOMEN: Soft, nontender EXTREMITIES: Left knee dressing and brace in place, did not take it down. DP + Right lower extremity without edema, clubbing or cyanosis. DERMATOLOGIC: Warm, dry. No generalized rash. Multiple tattoos. NEUROLOGIC: Alert and oriented x 3, grossly nonfocal. PSYCHIATRIC: Cooperative, appropriate mood and affect. RUE-PICC (12/08) without signs of complications Labs Lab Laboratory Tests Test 12/09/19 11:22 12/09/19 16:38 12/09/19 21:04 12/10/19 03:30 Glucose (Fingerstick) 89 mg/dL (70-99) 82 mg/dL (70-99) 142 mg/dL (70-99) Hemoglobin 12.6 g/dL (13.0-17.5) Hematocrit 37.9 % (39.0-53.0) Mean Corpuscular Hemoglobin Concent 33 g/dL (31-37) Test 12/10/19 07:34 Glucose (Fingerstick) 94 mg/dL (70-99) Micro 6/30. Synovial fluid GRAM STAIN Final Final NO ORGANISMS SEEN. SQUAMOUS EPI CELL:NOT APPLICABLE PMN (WBCs):MODERATE ANAEROBIC-AEROBIC CULTURE Preliminary Preliminary No Growth on 12/09/19 at 1126 AFB CULTURE FINAL PENDING AFB CULTURE GRAM STAIN Final Negative FUNGAL CULTURE,OTHER PENDING JONATAN CULT RES 1 PENDING Objective Assessment Left prosthetic joint infection, -s/p synovial aspirate by Dr. Green, 11/25/2019. Synovasure panel positive for staphylococcus. No crystals identified. Culture + MRSE (S- Gent/Zyvox/Tetracycline/Clinda). Status post left knee explantation with antibiotic spacer placement on 12/07/2019, Intra-op cultures neg to date History of left total knee arthroplasty, 08/03/2019. Status post incision and drainage for hematoma in 08/09/2019. The patient was on p.o. Keflex since last surgery until a month ago. Left knee degenerative joint disease, status post cortisone injections and viscous supplementation in the past. Status post cholecystectomy. Leukocytosis, likely postoperative. Anemia, likely acute blood loss. Hypoglycemia. Poor dentition. Plan Plan of Care Continue Zosyn Vancomycin dosing per pharmacy protocol. Trough 14.4 Monitor renal functions closely Probiotics Follow-up intraoperative cultures, neg so far Wound care as directed SNF plans underway Had loose stool after MOM and colace Labs in am Attending Co-Sign Attending Co-Sign The patient was seen and interviewed as well as examined at the bedside. The chart was reviewed. The case was discussed. Agree with the plan of care. BINDU CASEY APRN Dec 10, 2019 11:12 HERB MCKINNON MD Dec 10, 2019 16:09
--- NOTE | 2019-12-10 12:10 | CONS ---
DATE OF CONSULTATION: 12/10/2019 INTERNAL MEDICINE CONSULTATION CHIEF COMPLAINT: Infected knee, request for postop medical evaluation and treatment of comorbidities. HISTORY OF PRESENT ILLNESS: The patient is a pleasant 64-year-old male who underwent a total knee arthroplasty on 08/03/2019. He also underwent an incision and drainage for removal of intra-articular hematoma on 08/09/2019. He has been on Keflex for a couple of months. He has been noticing some increasing pain and swelling. There was some concern it could still be infected, so he was taken for left knee removal of prosthesis and total knee prosthesis and insertion of antibiotic spacer 3 days ago. We have been requested for postop medical evaluation and treatment of comorbidities. PAST MEDICAL HISTORY: Cholecystectomy, arthritis, degenerative joint disease, knee replacement, knee infection. ALLERGIES: None. FAMILY HISTORY: Diabetes. SOCIAL HISTORY: He does not drink, smoke or take drugs. He quit smoking in 2019. 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 MEDICATIONS: Reviewed, please refer to the MRAD. REVIEW OF SYSTEMS: GENERAL: No history of weight change, weakness or fevers. SKIN: No bruising, hair changes or rashes. EYES: No blurred, double or loss of vision. NOSE AND THROAT: No history of nosebleeds, hoarseness or sore throat. HEART: No history of palpitations, chest pain or shortness of breath on exertion. LUNGS: Denies cough, hemoptysis, wheezing or shortness of breath. GASTROINTESTINAL: Denies changes in appetite, nausea, vomiting, diarrhea or constipation. GENITOURINARY: No history of frequency, urgency, hesitancy or nocturia. NEUROLOGIC: Denies history of numbness, tingling, tremor or weakness. PSYCHIATRIC: No history of panic, anxiety or depression. ENDOCRINE: No history of heat or cold intolerance, polyuria or polydipsia. EXTREMITIES: He complains of left knee pain. PHYSICAL EXAMINATION: VITALS: Within normal limits and are stable. GENERAL: No apparent distress. Alert and oriented. HEENT: Normal cephalic atraumatic, external auditory canals are patent EYES: Extraocular muscles are intact, pupils are equally round and reactive to light and accommodation MUSCULOSKELETAL: Well developed, well nourished, good range of motion ENDOCRINE: No thyromegaly was palpated LYMPHATICS: No cervical chain or axillary nodes were noted HEMATOPOIETIC: No bruising NECK: Supple, no JVD, no thyromegaly was noted. LUNGS: Clear to auscultation in all lung birch without rhonchi or wheezing. HEART: RRR, S1, S2 present. Peripheral pulses intact, no obvious murmurs were noted. ABDOMEN: Soft, nontender. Positive bowel sounds no organomegaly, normal bowel sounds. EXTREMITIES: The left knee is in a clean, dry, and intact brace. NEUROLOGIC: Normal speech, normal tone. A & O x3, moves all extremities, no obvious focal deficits. PSYCHIATRIC: Normal affect, normal mood. Stable. SKIN: No ulcerations or rashes, good skin turgor, no jaundice. VASCULAR: Good capillary refill, neurovascular bundle appears to be intact. LABORATORY DATA: White count on 12/08/2019 was 14, hemoglobin this morning was 12.6. Electrolytes are pending. ASSESSMENT AND PLAN: Postoperative day #3, removal of the knee hardware with antibiotic spacer placement in a middle-aged male with the above noted comorbidities. For now, continue IV antibiotics. Infectious Disease has also been consulted. I have reviewed their note and agreed with their input. P.r.n., pain meds, home meds, DVT prophylaxis. Full code. We will order a fresh set of labs for the morning. counseling services manager consult for possible skilled. Thank you very much for allowing us to participate in the care of this nice gentleman. JENN HOLLIDAY DO DR: IESHA/regina JOB#: [id number] / [id number] Rei Nassar MD
[2019-12-10] MEDS: VANCOMYCIN PER PHARMACY MC PRN (12:43)
[2019-12-10 15:00] VITALS: BP 140/77
--- NOTE | 2019-12-10 17:09 | PDOC ---
PROGRESS NOTES Subjective Subjective Problems overnight:Comfortable, pain controlled Objective Vital Signs Vital Signs Date Time Temp Pulse Resp B/P (MAP) Pulse Ox O2 Delivery O2 Flow Rate FiO2 12/10/19 16:52 97 Room Air 12/10/19 15:00 97.6 55 18 140/77 (98) 97.6 12/09/19 20:00 2.0 Physical Exam Bloody drainage at midpoint of wound over patella, wound well approximated, N/V/I Labs Laboratory Tests Test 12/08/19 20:44 12/09/19 07:21 12/09/19 08:40 12/09/19 11:22 Glucose (Fingerstick) 152 mg/dL (70-99) 93 mg/dL (70-99) 89 mg/dL (70-99) Hemoglobin 12.8 g/dL (13.0-17.5) Hematocrit 38.4 % (39.0-53.0) Mean Corpuscular Hemoglobin Concent 34 g/dL (31-37) Hemoglobin A1c 6.5 % (4.8-5.6) Vancomycin Level Trough 14.4 mcg/mL (10.0-20.0) Vancomycin Last Dose Date 12/08/19 Vancomycin Last Dose Time 2100 Test 12/09/19 16:38 12/09/19 21:04 12/10/19 03:30 12/10/19 07:34 Glucose (Fingerstick) 82 mg/dL (70-99) 142 mg/dL (70-99) 94 mg/dL (70-99) Hemoglobin 12.6 g/dL (13.0-17.5) Hematocrit 37.9 % (39.0-53.0) Mean Corpuscular Hemoglobin Concent 33 g/dL (31-37) Test 12/10/19 11:44 12/10/19 16:23 Glucose (Fingerstick) 91 mg/dL (70-99) 90 mg/dL (70-99) Laboratory Tests Test 12/09/19 21:04 12/10/19 03:30 12/10/19 07:34 12/10/19 11:44 Glucose (Fingerstick) 142 mg/dL (70-99) 94 mg/dL (70-99) 91 mg/dL (70-99) Hemoglobin 12.6 g/dL (13.0-17.5) Hematocrit 37.9 % (39.0-53.0) Mean Corpuscular Hemoglobin Concent 33 g/dL (31-37) Test 12/10/19 16:23 Glucose (Fingerstick) 90 mg/dL (70-99) Assessment Assessment POD# explant knee with spacer Plan Plan of Care Await word on rehab for IV Abx Dressing changed Mobilize lightly Justicifation of Admission Dx: Justifications for Admission: Justification of Admission Dx: Yes (IV antibiotics wound care and rehab placement concerns) Sepsis: Infection AMARIS CARTER MD Dec 10, 2019 17:09
[2019-12-10 19:00] VITALS: BP 128/89
[2019-12-10] MEDS: ZOLPIDEM 5 MG TABLET. PO PRN (21:28)
[2019-12-10 23:00] VITALS: BP 138/76
[2019-12-11 03:00] VITALS: BP 148/77
[2019-12-11 04:28] LABS: HEMATOCRIT 36.6 % (39.0-53.0); HEMOGLOBIN 12.2 g/dL (13.0-17.5)
[2019-12-11 04:44] LABS: GFR 74.8
[2019-12-11] MEDS: PIPERACILLIN/TAZOBACTAM 3.375 GM in IV NORMAL SALINE 50ML 50 ML IV SCH ×4 (06:02→17:57)
[2019-12-11 07:59] VITALS: BP 145/80
[2019-12-11] MEDS: INSULIN LISPRO 300 UNITS/3 ML VIAL. SQ SCH ×3 (08:00→17:00)
[2019-12-11] MEDS: MULTIVITAMIN with MINERAL TABLET. PO SCH (08:44)
[2019-12-11] MEDS: FERROUS SULFATE 325 MG TABLET. PO SCH ×2 (08:44→17:57)
[2019-12-11] MEDS: SENNOSIDES/DOCUSATE 8.6/50MG TABLET. PO SCH (08:44)
[2019-12-11] MEDS: CELECOXIB 100 MG CAPSULE. PO SCH (08:45)
[2019-12-11] MEDS: ASPIRIN ENTERIC COATED 325 MG TABLET.DR. PO SCH ×2 (08:45→20:46)
[2019-12-11] MEDS: LACTOBACILLUS RHAMNOSUS GG 1 CAPSULE. PO SCH ×2 (08:46→20:46)
[2019-12-11] MEDS: VANCOMYCIN 1.25 GM in IV NORMAL SALINE 250ML 250 ML IV SCH ×2 (08:52→20:47)
--- NOTE | 2019-12-11 09:58 | SNU/HH DC ---
DISCHARGE ORDERS DISCHARGE INFORMATION: DISCHARGE DATE: Dec 11, 2019 FINAL DIAGNOSIS Left prosthetic knee infection status post explantation and placement antibiotic spacer CONDITION ON DISCHARGE: Stable CODE STATUS: Code Status: Full DETENTION: SNF STAY <30 DAYS: Yes POST DISCHARGE ORDERS: ACTIVITY ORDERS: Other, see below (Weightbearing as tolerated with immobilizer for support) WEIGHT BEARING STATUS: As tolerated (With knee immobilizer for support) DIET AFTER DISCHARGE: ADA WOUND/INCISION CARE: Change dressing (Daily dressing changes, currently using Xeroform gauze ABD and Marcus wrap) CHECKS AFTER DISCHARGE: CHECKS AFTER DISCHARGE: Check blood sugar, ac/hs FOLLOW-UP: PHYSICIAN FOLLOW-UP: Dr. Green 1 to 2 weeks LAB ORDERS FOR FOLLOW-UP: Per infectious disease directions TREATMENT/EQUIPMENT ORDERS: INFUSION EQUIPMENT NEEDED: PICC Line (IV antibiotics per infectious disease directions) Physical Therapy For: Evalulation/Treatment DISCHARGE MEDICATIONS: Home Meds Active Scripts Aspirin (ASPIRIN EC) 325 Mg Tablet.dr, 325 MG PO BID for prevent blood clots for 30 Days, #60 TAB.SR take one 325 mg enteric coated aspirin by mouth twice a day for 30 days Prov:JASON GREEN MD 08/07/19 Reported Medications Cephalexin (CEPHALEXIN) 500 Mg Capsule, 1 CAP PO QID for knee infection, #40 CAP 12/03/19 AMARIS CARTER MD Dec 11, 2019 09:58
[2019-12-11] MEDS ORDERED: OXYC1TAB22 PO (10:19)
--- NOTE | 2019-12-11 10:27 | PDOC ---
PROGRESS NOTES Subjective Subjective Problems overnight: Pain well controlled no complaints Objective Vital Signs Vital Signs Date Time Temp Pulse Resp B/P (MAP) Pulse Ox O2 Delivery O2 Flow Rate FiO2 12/11/19 07:59 98.2 62 18 145/80 (101) 92 Room Air 98.2 12/10/19 19:52 2.0 Physical Exam Drainage at midpoint of incision bloody in nature, dressings changed with Chl oraPrep swab peripherally Xeroform 4 x 4's ABD pads and Marcus wrap, distal neurovascular status intact Labs Laboratory Tests Test 12/09/19 11:22 12/09/19 16:38 12/09/19 21:04 12/10/19 03:30 Glucose (Fingerstick) 89 mg/dL (70-99) 82 mg/dL (70-99) 142 mg/dL (70-99) Hemoglobin 12.6 g/dL (13.0-17.5) Hematocrit 37.9 % (39.0-53.0) Mean Corpuscular Hemoglobin Concent 33 g/dL (31-37) Test 12/10/19 07:34 12/10/19 11:44 12/10/19 16:23 12/10/19 20:52 Glucose (Fingerstick) 94 mg/dL (70-99) 91 mg/dL (70-99) 90 mg/dL (70-99) 123 mg/dL (70-99) Test 12/11/19 03:17 12/11/19 07:17 Hemoglobin 12.2 g/dL (13.0-17.5) Hematocrit 36.6 % (39.0-53.0) Mean Corpuscular Hemoglobin Concent 33 g/dL (31-37) Creatinine 1.0 mg/dL (0.7-1.3) Estimated GFR (Cockcroft-Gault) 74.8 Glucose (Fingerstick) 89 mg/dL (70-99) Laboratory Tests Test 12/10/19 11:44 12/10/19 16:23 12/10/19 20:52 12/11/19 03:17 Glucose (Fingerstick) 91 mg/dL (70-99) 90 mg/dL (70-99) 123 mg/dL (70-99) Hemoglobin 12.2 g/dL (13.0-17.5) Hematocrit 36.6 % (39.0-53.0) Mean Corpuscular Hemoglobin Concent 33 g/dL (31-37) Creatinine 1.0 mg/dL (0.7-1.3) Estimated GFR (Cockcroft-Gault) 74.8 Test 12/11/19 07:17 Glucose (Fingerstick) 89 mg/dL (70-99) Assessment Assessment POD#explantation total knee prosthesis with antibiotic spacer left knee Plan Plan of Care Plan discharge today to [facility] near [facility] Discharge instructions written, Percocet prescription provided, IV antibiotics and associated testing per infectious disease Follow-up Dr. Peña 1 to 2 weeks call office for appointment Justicifation of Admission Dx: Justifications for Admission: Justification of Admission Dx: Yes (Finalizing rehab placement issues with IV antibiotics today and discharge instructions written) Sepsis: Infection AMARIS CARTER MD Dec 11, 2019 10:27
[2019-12-11 11:59] VITALS: BP 140/88
--- NOTE | 2019-12-11 11:59 | PDOC ---
Infectious Disease Note Subjective Subjective Comfortable, denies increase knee pain Dressing changed earlier by ortho. Some bloody drainage noted. + diarrhea after taking Milk of mag the other day. No F/C/N/V/cramps or loss of appetite ROS ROS as mentioned above Vital Sign Vital Signs Vital Signs Date Time Temp Pulse Resp B/P (MAP) Pulse Ox O2 Delivery O2 Flow Rate FiO2 12/11/19 08:00 Room Air 12/11/19 07:59 98.2 62 18 145/80 (101) 92 98.2 12/10/19 19:52 2.0 Physical Exam PHYSICAL EXAM GENERAL: Sitting in the chair, legs elevated, alert in NAD HEENT: Oral cavity pink, moist. No thrush. Poor dentition. LUNGS: Clear bilaterally. No wheezing. NECK: Supple HEART: S1, S2. ABDOMEN: Soft, nontender EXTREMITIES: Left knee dressing and brace in place, did not take it down. DP + Right lower extremity without edema, clubbing or cyanosis. DERMATOLOGIC: Warm, dry. No generalized rash. Multiple tattoos. NEUROLOGIC: Alert and oriented x 3, grossly nonfocal. PSYCHIATRIC: Cooperative, appropriate mood and affect. RUE-PICC (12/08) without signs of complications Labs Lab Laboratory Tests Test 12/10/19 16:23 12/10/19 20:52 12/11/19 03:17 12/11/19 07:17 Glucose (Fingerstick) 90 mg/dL (70-99) 123 mg/dL (70-99) 89 mg/dL (70-99) Hemoglobin 12.2 g/dL (13.0-17.5) Hematocrit 36.6 % (39.0-53.0) Mean Corpuscular Hemoglobin Concent 33 g/dL (31-37) Creatinine 1.0 mg/dL (0.7-1.3) Estimated GFR (Cockcroft-Gault) 74.8 Micro 12/06. Synovial fluid GRAM STAIN Final Final NO ORGANISMS SEEN. SQUAMOUS EPI CELL:NOT APPLICABLE PMN (WBCs):MODERATE ANAEROBIC-AEROBIC CULTURE Preliminary Preliminary No Growth on 12/09/19 at 1126 AFB CULTURE FINAL PENDING AFB CULTURE GRAM STAIN Final Negative FUNGAL CULTURE,OTHER PENDING JONATAN CULT RES 1 PENDING Objective Assessment Left prosthetic joint infection, -s/p synovial aspirate by Dr. Green, 11/25/2019. Synovasure panel positive for staphylococcus. No crystals identified. Culture + MRSE (S- Gent/Zyvox/Tetracycline/Clinda). Status post left knee explantation with antibiotic spacer placement on 12/07/2019, Intra-op cultures neg to date History of left total knee arthroplasty, 08/03/2019. Status post incision and drainage for hematoma in 08/09/2019. The patient was on p.o. Keflex since last surgery until a month ago. Left knee degenerative joint disease, status post cortisone injections and viscous supplementation in the past. Status post cholecystectomy. Leukocytosis, likely postoperative. Anemia, likely acute blood loss. Hypoglycemia. Poor dentition. Diarrhea Plan Plan of Care Continue Zosyn Vancomycin dosing per pharmacy protocol. Last Trough was 14.4 on 12/08 Monitor renal functions closely. Today's Cr 1.0 Probiotics Follow-up intraoperative cultures, neg so far Wound care as directed SNF plans underway D/w Dr. Cullen and nursing. If discharged to SNF: Continue the vancomycin and Zosyn along with the probiotics Weekly CBC, CMP, ESR faxed to [phone] Follow-up our office in 1 week Call for appt [phone] Patient discussed with [employer]DLE SCHO[employer] ASSISTANT PRINCIPAL. Chart reviewed in detail. Above plan co-formulated and agreed upon with MIDDLE SCHOOL ASSISTANT PRINCIPAL on 12/11/2019. BINDU CASEY APRN Dec 11, 2019 11:59 RAO ZHU MD Dec 12, 2019 20:07
--- NOTE | 2019-12-11 12:31 | PDOC ---
[facility] PROGRESS NOTE Chief Complaint Chief Complaint Postop removal of left knee hardware with antibiotic spacer placement Cholecystectomy, arthritis, degenerative joint disease, knee replacement, knee infection. History of Present Illness History of Present Illness 12/11/2019 Patient seen and examined The left knee is in a brace Chart reviewed Discussed with RN Vitals/I&O Vitals/I&O: Vital Signs Date Time Temp Pulse Resp B/P (MAP) Pulse Ox O2 Delivery O2 Flow Rate FiO2 12/11/19 08:00 Room Air 12/11/19 07:59 98.2 62 18 145/80 (101) 92 98.2 12/10/19 19:52 2.0 I & O 12/10/19 12/10/19 12/11/19 15:00 23:00 07:00 Intake Total 300 ml 300 ml 50 ml Output Total 1000 ml Balance 300 ml 300 ml -950 ml Physical Exam Physical Exam: GENERAL: Sitting in the chair, legs elevated, alert in NAD HEENT: Oral cavity pink, moist. No thrush. Poor dentition. LUNGS: Clear bilaterally. No wheezing. NECK: Supple HEART: S1, S2. ABDOMEN: Soft, nontender EXTREMITIES: Left knee dressing and brace in place, did not take it down. DP + Right lower extremity without edema, clubbing or cyanosis. DERMATOLOGIC: Warm, dry. No generalized rash. Multiple tattoos. NEUROLOGIC: Alert and oriented x 3, grossly nonfocal. PSYCHIATRIC: Cooperative, appropriate mood and affect. RUE-PICC (12/08) without signs of complications General: Alert, Cooperative Extremities: Other (The left knee shows an intact total knee scar, however there is some erythema swelling and inflammation of the knee. There was no drainage. There is slight tenderness. There is no malalignment. Range of motion is still about 5 to 100 degrees without difficulty. There is a recurrent effusion. There is tenderness along the anterior incision and possible slight fluid collection in this area.) Skin: No breakdown, No significant lesion Labs Labs: Laboratory Tests Test 12/10/19 16:23 12/10/19 20:52 12/11/19 03:17 12/11/19 07:17 Glucose (Fingerstick) 90 mg/dL (70-99) 123 mg/dL (70-99) 89 mg/dL (70-99) Hemoglobin 12.2 g/dL (13.0-17.5) Hematocrit 36.6 % (39.0-53.0) Mean Corpuscular Hemoglobin Concent 33 g/dL (31-37) Creatinine 1.0 mg/dL (0.7-1.3) Estimated GFR (Cockcroft-Gault) 74.8 Test 12/11/19 11:53 Glucose (Fingerstick) 118 mg/dL (70-99) Assessment and Plan Assessmemt and Plan Postop removal of left knee hardware with antibiotic spacer placed Postop pain Cholecystectomy, arthritis, degenerative joint disease, knee replacement, knee infection. Plan Zosyn and Vanco ID following Home meds DVT prophylaxis Full code PT OT [facility] (we will try to arrange that for Friday) We will follow Comment Review of Relevant I have reviewed the following items ed (where applicable) has been applied. Justicifation of Admission Dx: Justifications for Admission: Justification of Admission Dx: Yes (Finalizing rehab placement issues with IV antibiotics today and discharge instructions written) Sepsis: Infection JENN HOLLIDAY III DO Dec 11, 2019 12:31
--- NOTE | 2019-12-11 12:45 | NUR ---
I notified Dr Traore that pt was already accepted at [facility] and discharge orders written by Dr Oleary, but waiting approval by I.D. who would like to round and see the pt this afternoon.
--- NOTE | 2019-12-11 14:37 | NUR ---
Dr Valencia would like to see patient this afternoon before making a discharge decision. [facility] states they would have needed the orders for antibiotics by 3PM in order to have them ready on time. Discharge postponed until tomorrow am, provided I.D. approves of discharge. spooling supervisor and patient notified.
[2019-12-11 15:59] VITALS: BP 156/90
[2019-12-11 19:40] VITALS: BP 147/80
[2019-12-11] MEDS: oxyCODONE/APAP 10/325 1 TAB TABLET PO PRN (20:46)
[2019-12-11] MEDS: ZOLPIDEM 5 MG TABLET. PO PRN (20:46)
[2019-12-11 23:15] VITALS: BP 155/77
[2019-12-12] MEDS: PIPERACILLIN/TAZOBACTAM 3.375 GM in IV NORMAL SALINE 50ML 50 ML IV SCH ×3 (00:16→13:17)
[2019-12-12 03:25] VITALS: BP 106/69
--- NOTE | 2019-12-12 07:36 | PDOC ---
PROGRESS NOTES Subjective Subjective Problems overnight: Comfortable this morning pain well controlled no other complaints, had questions on overall process and plan as apparently his discharge was delayed yesterday in terms of final details of antibiotic coverage on planned rehab discharge Objective Vital Signs Vital Signs Date Time Temp Pulse Resp B/P (MAP) Pulse Ox O2 Delivery O2 Flow Rate FiO2 12/12/19 03:25 98.1 59 20 106/69 (81) 93 Room Air 98.1 12/10/19 19:52 2.0 Physical Exam Distal neurovascular status intact no visible drainage on dressings currently Labs Laboratory Tests Test 12/10/19 07:34 12/10/19 11:44 12/10/19 16:23 12/10/19 20:52 Glucose (Fingerstick) 94 mg/dL (70-99) 91 mg/dL (70-99) 90 mg/dL (70-99) 123 mg/dL (70-99) Test 12/11/19 03:17 12/11/19 07:17 12/11/19 11:53 12/11/19 16:28 Hemoglobin 12.2 g/dL (13.0-17.5) Hematocrit 36.6 % (39.0-53.0) Mean Corpuscular Hemoglobin Concent 33 g/dL (31-37) Creatinine 1.0 mg/dL (0.7-1.3) Estimated GFR (Cockcroft-Gault) 74.8 Glucose (Fingerstick) 89 mg/dL (70-99) 118 mg/dL (70-99) 92 mg/dL (70-99) Test 12/11/19 20:46 12/12/19 07:20 Glucose (Fingerstick) 103 mg/dL (70-99) 97 mg/dL (70-99) Laboratory Tests Test 12/11/19 11:53 12/11/19 16:28 12/11/19 20:46 12/12/19 07:20 Glucose (Fingerstick) 118 mg/dL (70-99) 92 mg/dL (70-99) 103 mg/dL (70-99) 97 mg/dL (70-99) Assessment Assessment POD#status post explantation total knee arthroplasty for infection with antibiotic spacer Plan Plan of Care Discharge instructions remain in for possible discharge to [facility] rehab near [facility] I did discuss with him the general treatment plan for evaluation IV antibiotics and that that would be modified or finalized by Dr. Green and infectious disease, all his questions answered at present Justicifation of Admission Dx: Justifications for Admission: Justification of Admission Dx: Yes (Finalizing rehab placement issues with IV antibiotics today and discharge instructions written) Sepsis: Infection AMARIS CARTER MD Dec 12, 2019 07:36
[2019-12-12 07:59] VITALS: BP 121/90
[2019-12-12] MEDS: INSULIN LISPRO 300 UNITS/3 ML VIAL. SQ SCH ×2 (08:00→12:00)
[2019-12-12] MEDS: SENNOSIDES/DOCUSATE 8.6/50MG TABLET. PO SCH (09:00)
[2019-12-12] MEDS: MULTIVITAMIN with MINERAL TABLET. PO SCH (10:55)
[2019-12-12] MEDS: LACTOBACILLUS RHAMNOSUS GG 1 CAPSULE. PO SCH (10:55)
[2019-12-12] MEDS: ASPIRIN ENTERIC COATED 325 MG TABLET.DR. PO SCH (10:55)
[2019-12-12] MEDS: FERROUS SULFATE 325 MG TABLET. PO SCH (10:55)
[2019-12-12] MEDS: CELECOXIB 100 MG CAPSULE. PO SCH (10:56)
[2019-12-12] MEDS: oxyCODONE/APAP 10/325 1 TAB TABLET PO PRN (10:57)
[2019-12-12] MEDS: VANCOMYCIN 1.25 GM in IV NORMAL SALINE 250ML 250 ML IV SCH (11:02)
[2019-12-12] MEDS: VANCOMYCIN PER PHARMACY MC PRN (11:46)
[2019-12-12 11:59] VITALS: BP 150/91
[2019-12-12] MEDS ORDERED: PIPE3.3734 IV (12:07)
[2019-12-12] MEDS ORDERED: VANC1.2514 IV (12:09)
[2019-12-12] MEDS ORDERED: VANC1.257 IV (12:10)
[2019-12-12] MEDS ORDERED: ASPI325T8 PO (12:11)
--- NOTE | 2019-12-12 13:51 | PDOC ---
[facility] PROGRESS NOTE Chief Complaint Chief Complaint Postop removal of left knee hardware with antibiotic spacer placement Cholecystectomy, arthritis, degenerative joint disease, knee replacement, knee infection. History of Present Illness History of Present Illness 12/12/2019 Patient seen and examined Discussed with RN He is scheduled to go to rehab this afternoon 12/11/2019 Patient seen and examined The left knee is in a brace Chart reviewed Discussed with RN Vitals/I&O Vitals/I&O: Vital Signs Date Time Temp Pulse Resp B/P (MAP) Pulse Ox O2 Delivery O2 Flow Rate FiO2 12/12/19 11:59 98.1 63 18 150/91 (110) 94 Room Air 98.1 12/12/19 08:00 2.0 I & O 12/11/19 12/11/19 12/12/19 15:00 23:00 07:00 Intake Total 250 ml 220 ml Output Total 650 ml 750 ml 400 ml Balance -650 ml -500 ml -180 ml Physical Exam Physical Exam: GENERAL: Sitting in the chair, legs elevated, alert in NAD HEENT: Oral cavity pink, moist. No thrush. Poor dentition. LUNGS: Clear bilaterally. No wheezing. NECK: Supple HEART: S1, S2. ABDOMEN: Soft, nontender EXTREMITIES: Left knee dressing and brace in place, did not take it down. DP + Right lower extremity without edema, clubbing or cyanosis. DERMATOLOGIC: Warm, dry. No generalized rash. Multiple tattoos. NEUROLOGIC: Alert and oriented x 3, grossly nonfocal. PSYCHIATRIC: Cooperative, appropriate mood and affect. RUE-PICC (12/08) without signs of complications General: Alert, Cooperative Extremities: Other (The left knee shows an intact total knee scar, however there is some erythema swelling and inflammation of the knee. There was no drainage. There is slight tenderness. There is no malalignment. Range of motion is still about 5 to 100 degrees without difficulty. There is a recurrent effusion. There is tenderness along the anterior incision and possible slight fluid collection in this area.) Skin: No breakdown, No significant lesion Labs Labs: Laboratory Tests Test 12/11/19 16:28 12/11/19 20:46 12/12/19 07:20 Glucose (Fingerstick) 92 mg/dL (70-99) 103 mg/dL (70-99) 97 mg/dL (70-99) Assessment and Plan Assessmemt and Plan Postop removal of left knee hardware with antibiotic spacer placed Postop pain Cholecystectomy, arthritis, degenerative joint disease, knee replacement, knee infection. Plan Patient is scheduled to go to rehab this afternoon For now continue current care Follow-up PCP in a month Comment Review of Relevant I have reviewed the following items ed (where applicable) has been applied. Justicifation of Admission Dx: Justifications for Admission: Justification of Admission Dx: Yes (Finalizing rehab placement issues with IV antibiotics today and discharge instructions written) Sepsis: Infection JENN HOLLIDAY III DO Dec 12, 2019 13:51
--- NOTE | 2019-12-12 16:05 | NUR ---
1430 pt was transferred to [facility] by [facility]. Report given to Aby LUNA and to Katy LUNA. Aby verified receipt of orders and medications. Pt stated that he had all of his personal belongings. PICC line left in place for chcf abx.
--- NOTE | 2020-01-02 17:35 | DS ---
DATE OF DISCHARGE: 12/12/2019 ORTHOPEDIC DISCHARGE SUMMARY PRINCIPAL DIAGNOSIS: Left total knee infection. PROCEDURES: Include explantation of left total knee arthroplasty and placement of antibiotic spacer by Dr. Green. DISPOSITION: senior living facility. DISPOSITION MEDICATIONS: Percocet 10/325 one p.o. q.6 hours p.r.n. pain. Continue vancomycin and piperacillin, tazobactam per Infectious Disease as well as aspirin 325 mg p.o. b.i.d. x planned 30 days. DISCHARGE INSTRUCTIONS: Follow up Dr. Green in 2 weeks. Follow up with Infectious Disease as directed. Post-discharge weightbearing as tolerated with knee immobilizer for support, diabetic diet. Change dressing daily, Xeroform gauze, ABD and Marcus wrap. Maintain PICC line per Infectious Disease. BRIEF DESCRIPTION OF HOSPITAL COURSE: The patient underwent removal of infected total knee arthroplasty with insertion of an antibiotic spacer on 12/07/2019. 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 Green's treatment and initial evaluation. He was scheduled for discharge, which was initially delayed due to final details of antibiotic coverage, unplanned long-term facility discharge and then was discharged on 12/12/2019 in stable condition to his rehab facility. AMARIS CARTER MD DR: FLAQUITO/regina JOB#: [id number] / [id number] Rei Nassar MD
== END 2019-12-12 14:30 | DRG 468 ==
LOC: OPSVCIP 07:07 → EDSTATUS 08:45 → 4 NORTH 12:53
PROVIDERS: ADMIT Orthopaedic Surgery; ATTEND Orthopaedic Surgery
PROC: 0SRD0EZ Replacement of Left Knee Joint with Articulating Spacer, Open Approach (ICD-10-PCS; 2019-12-07)
PROC: 0SPD0JZ Removal of Synthetic Substitute from Left Knee Joint, Open Approach (ICD-10-PCS; 2019-12-07)
PROC: 02HV33Z Insertion of Infusion Device into Superior Vena Cava, Percutaneous Approach (ICD-10-PCS; principal; 2019-12-09)
PROC: B548ZZA Ultrasonography of Superior Vena Cava, Guidance (ICD-10-PCS; 2019-12-09)
PROC: B5181ZA Fluoroscopy of Superior Vena Cava using Low Osmolar Contrast, Guidance (ICD-10-PCS; 2019-12-09)
DX: T84.54XA Infection and inflammatory reaction due to internal left knee prosthesis, initial encounter (principal); E16.2 Hypoglycemia, unspecified; B95.8 Unspecified staphylococcus as the cause of diseases classified elsewhere; D64.9 Anemia, unspecified; R19.7 Diarrhea, unspecified; M17.12 Unilateral primary osteoarthritis, left knee; Z20.828 Contact with and (suspected) exposure to other viral communicable diseases; Y83.1 Surgical operation with implant of artificial internal device as the cause of abnormal reaction of the patient, or of later complication, without mention of misadventure at the time of the procedure; Z83.3 Family history of diabetes mellitus; Z87.891 Personal history of nicotine dependence; Z90.49 Acquired absence of other specified parts of digestive tract; Z79.899 Other long term (current) drug therapy
CPT/HCPCS: 36415; 36573; 73560; 80053; 80202; 80307; 82565; 82962; 83036; 85007; 85014; 85018; 85025; 86140; 86850; 86900; 86901; 87071; 87075; 87102; 87116; A7015; C1713; C1751; C1892; J0690; J0780; J1100; J1170; J1815; J2250; J2270; J2405; J2543; J2704; J3010; J3260; J3370; J3490; J7030; J7040; J7050; J7120; 97110-GP; 97116-GP; 97530-GP; 97535-GO; A4461; C1769; G0378

== ENCOUNTER → 2020-01-31 | Outpatient (CLI) | payer MEDICARE ==
[2020-01-19 13:07] VITALS: BP 143/85
[~2020-01-31] MED LIST changes: -ACETAMINOPHEN 500 MG TABLET PO PRN; +CELE200C PO; -CELECOXIB 100 MG CAPSULE. PO ONE; -IV RINGERS,LACTATED 1000ML 1,000 ML IV SCH; -ONDANSETRON PF 4 MG/2 ML VIAL. IV PRN; +OXYC1TAB22 PO; +PIPE3.3734 IV; -TRANEXAMIC ACID 1,000 MG in IV NS 50ML -- 1ST BAG INJ ONE; +VANC1.2514 IV; +VANC1.257 IV; -fentaNYL PF VIAL 100 MCG/2 ML VIAL IV PRN
== END | disposition home or self-care (01) ==
LOC: SPEC 17:06
PROVIDERS: ATTEND Orthopaedic Surgery
DX: Z89.522 Acquired absence of left knee (principal)
CPT/HCPCS: 87071; 87075; 87102; 87116

== ENCOUNTER → 2020-02-10 | Outpatient (CLI) | payer MEDICARE ==
[2020-01-19 13:07] VITALS: BP 143/85
--- NOTE | 2020-02-10 10:39 | EKG ---
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
[2020-02-10 10:53] LABS: ALBUMIN 3.6 g/dL (3.4-5.0); C-REACTIVE PROTEIN 3.3 mg/L (0-3.3); CALCIUM 9.3 mg/dL (8.5-10.1); GFR 74.8; POTASSIUM 4.8 mmol/L (3.5-5.1)
[2020-02-10 10:54] LABS: PROTHROMBIN TIME PATIENT 12.7 SEC (11.7-14.0)
[2020-02-10 11:47] LABS: BASO % 0 % (0-3); EOS # 0.2 x10^3/uL (0.0-0.7); EOS % 2 % (0-3); HEMOGLOBIN 14.8 g/dL (13.0-17.5); LYMPH # 1.7 x10^3/uL (1.0-4.8); LYMPH % 21 % (24-48); MEAN CORPUSCULAR HEMOGLOBIN 30 pg (25-35); MEAN CORPUSCULAR HGB CONC 34 g/dL (31-37); MEAN CORPUSCULAR VOLUME 89 fL (79-100); MONO # 0.8 x10^3/uL (0.0-1.1); MONO % 10 % (0-9); NEUT # 5.5 x10^3/uL (1.8-7.7); NEUT % 67 % (31-73); PLATELET COUNT 234 x10^3/uL (140-400); RED BLOOD COUNT 4.95 x10^6/uL (4.30-5.70); RED CELL DISTRIBUTION WIDTH 15.8 % (11.5-14.5); WHITE BLOOD COUNT 8.2 x10^3/uL (4.0-11.0)
--- NOTE | 2020-02-10 15:13 | RAD ---
CHEST PA LATERAL INDICATION: PRE OP. LEFT TOTAL KNEE ARTROPLASTY SCHEDULED 02/15/2020 . COMPARISON STUDY: None. FINDINGS: Lungs: Normal lung volume. No pulmonary mass or consolidation. Calcified pulmonary granulomas. The tracheobronchial tree and hilar structures are normal. Pleura: No pleural effusion or pneumothorax. Heart and Mediastinum: The cardiomediastinal silhouette is normal. Atherosclerosis of the thoracic aorta. Bones and Soft Tissues: Degenerative changes of the spine. IMPRESSION: No acute cardiopulmonary process. Electronically signed by: Herb Hassan MD (02/10/2020 3:10 PM) [id number]
[2020-02-11 05:11] LABS: HEMOGLOBIN A1C 5.5 % (4.8-5.6)
== END | disposition home or self-care (01) ==
LOC: SURGPAT 09:49
PROVIDERS: ATTEND Orthopaedic Surgery
DX: Z01.812 Encounter for preprocedural laboratory examination (principal); Z20.828 Contact with and (suspected) exposure to other viral communicable diseases; Z89.522 Acquired absence of left knee
CPT/HCPCS: 36415; 71046; 80048; 82040; 82306; 83036; 85025; 85610; 85730; 86140; 87641; 93005; U0003

== ENCOUNTER 2020-02-15 08:32 | Inpatient (IN) | payer MEDICARE ==
[2020-02-15] VITALS (7 sets, daily range): BP systolic 120–149; BP diastolic 62–89
[~2020-02-15] VITALS: Ht 165.1 cm; Wt 80.8 kg
[~2020-02-15 08:32] MED LIST changes: +ACETAMINOPHEN 500 MG TABLET PO PRN; -CELE200C PO; +CELECOXIB 100 MG CAPSULE. PO PRN; +HYDROmorphone 2 MG/ML VIAL IV PRN; +IV RINGERS,LACTATED 1000ML 1,000 ML IV SCH; +LIDOCAINE 1% PF 2 ML VIAL. ID PRN; +MORPHINE SULFATE 2 MG/ML VIAL. IV PRN; +MORPHINE SULFATE 5 MG, KETOROLAC 30MG VIAL 30 MG, ROPIVacaine 0.5% PF 60 ML, EPINEPHrin... INT ART ONE; +ONDANSETRON PF 4 MG/2 ML VIAL. IV PRN; +PROCHLORPERAZINE 10 MG/2 ML VIAL. IV PRN; +TOBRAMYCIN POWDER 1.2 GM VIAL. ONE; +TRANEXAMIC ACID 1,000 MG in IV NS 50ML -- 1ST BAG INJ ONE; +TRANEXAMIC ACID 1,000 MG in IV NS 50ML -- 2ND BAG INJ ONE; +VANCOMYCIN 1 GM VIAL. ONE; +fentaNYL PF VIAL 100 MCG/2 ML VIAL IV PRN
[2020-02-15] MEDS ORDERED: CELE200C PO (09:20)
[2020-02-15] MEDS ORDERED: fentaNYL PF VIAL 250 MCG/5 ML VIAL ONE (09:44)
--- NOTE | 2020-02-15 10:32 | PDOC1 ---
History and Physical Date of Admission Date of Admission DATE: 02/15/20 TIME: 10:26 Identification/Chief Complaint Chief Complaint Here for revision left total knee arthroplasty, he has an absent knee joint at this time Source Source: Chart review, Patient History of Present Illness History of Present Illness This 64-year-old man had index left total knee arthroplasty August 03, 2019 for osteoarthritis. He developed hematoma and had irrigation of hematoma on August 06, 2019. He then developed evidence of infection later, and had also resumed smoking. Cotinine was positive on December 07. The index knee was explanted on 12/07/2019, and an antibiotic spacer was placed. He was on IV antibiotics for 6 weeks, and then off antibiotics for 2 weeks. Recent cultures were taken which showed no growth. I believe infection has been eradicated. I have again advised him to stop smoking. He is here today for conversion/revision total knee arthroplasty, converting from the antibiotic spacer. This will require stemmed revision components; primary components would be insufficient for fixation. Past Medical History Cardiovascular: No pertinent hx Pulmonary: No pertinent hx GI: No pertinent hx Heme/Onc: No pertinent hx Hepatobiliary: No pertinent hx Psych: No pertinent hx Rheumatologic: No pertinent hx Infectious disease: No pertinent hx Renal/: No pertinent hx Endocrine: No pertinent hx Past Surgical History Past Surgical History: Cholecystectomy Family History Family History: Diabetes, Heart Disease Social History ALCOHOL: none Drugs: None Current Medications Current Medications Current Medications Ondansetron HCl (Zofran) 4 mg PRN Q6HRS PRN IV NAUSEA/VOMITING; Start 02/15/20 at 07:00; Stop 02/16/20 at 06:59 Fentanyl Citrate (Fentanyl 2ml Vial) 25 mcg PRN Q5MIN PRN IV MILD PAIN 1-3; Start 02/15/20 at 07:00; Stop 02/16/20 at 06:59 Fentanyl Citrate (Fentanyl 2ml Vial) 50 mcg PRN Q5MIN PRN IV MODERATE TO SEVERE PAIN; Start 02/15/20 at 07:00; Stop 02/16/20 at 06:59 Morphine Sulfate (Morphine Sulfate) 1 mg PRN Q10MIN PRN IV SEVERE PAIN 7-10; Start 02/15/20 at 07:00; Stop 02/16/20 at 06:59 Ringer's Solution 1,000 ml @ 30 mls/hr Q24H IV Last administered on 02/15/20at 07:00; Start 02/15/20 at 07:00; Stop 02/15/20 at 18:59 Lidocaine HCl (Xylocaine-Mpf 1% 2ml Vial) 2 ml PRN 1X PRN ID PRIOR TO IV START; Start 02/15/20 at 07:00; Stop 02/16/20 at 06:59 Hydromorphone HCl (Dilaudid) 0.5 mg PRN Q10MIN PRN IV SEV PAIN, Second choice; Start 02/15/20 at 07:00; Stop 02/16/20 at 06:59 Prochlorperazine Edisylate (Compazine) 5 mg PACU PRN PRN IV NAUSEA, MRX1; Start 02/15/20 at 07:00; Stop 02/16/20 at 06:59 Morphine Sulfate 5 mg/Ketorolac Tromethamine 30 mg/Ropivacaine 60 ml/Epinephrine HCl 0.5 mg/Sodium Chloride 100 ml @ 100 mls/hr 1X ONCE INT ART ; Start 02/15/20 at 06:00; Stop 02/15/20 at 06:59; Status DC Celecoxib (CeleBREX) 400 mg 1X PREOP PRN PO PRIOR TO SURGERY; Start 02/15/20 at 08:00 Acetaminophen (Tylenol) 1,000 mg 1X PREOP PRN PO PRIOR TO PROCEDURE; Start 02/15/20 at 06:00; Stop 02/15/20 at 18:00 Cefazolin Sodium/ Dextrose 50 ml @ 100 mls/hr 1X PREOP PRN IV PRIOR TO PROCEDURE; Start 02/15/20 at 06:00; Stop 02/15/20 at 18:00 Tranexamic Acid 1000 mg/Sodium Chloride 60 ml @ 60 mls/hr 1X PERIOP ONCE INJ ; Start 02/15/20 at 06:00; Stop 02/15/20 at 06:59; Status DC Tranexamic Acid 1000 mg/Sodium Chloride 60 ml @ 60 mls/hr 1X PERIOP ONCE INJ ; Start 02/15/20 at 08:00; Stop 02/15/20 at 09:08; Status DC Vancomycin HCl (Vancomycin) 1 gm STK-MED ONCE .ROUTE ; Start 02/15/20 at 07:40; Stop 02/15/20 at 07:40; Status DC Tobramycin Sulfate (Tobramycin Powder) 1.2 gm STK-MED ONCE .ROUTE ; Start 02/15/20 at 07:40; Stop 02/15/20 at 07:40; Status DC Fentanyl Citrate (Fentanyl 5ml Vial) 250 mcg STK-MED ONCE .ROUTE ; Start 02/15/20 at 09:44; Stop 02/15/20 at 09:45; Status DC Active Scripts Active Percocet 10-325 Mg Tablet (Oxycodone/Acetaminophen) 1 Each Tablet 1 Tab PO PRN Q6HRS PRN Aspirin Ec (Aspirin) 325 Mg Tablet.dr 325 Mg PO BID 30 Days take one 325 mg enteric coated aspirin by mouth twice a day for 30 days Reported Celebrex (Celecoxib) 200 Mg Capsule 400 Mg PO X1 30 Days Vanco 1.25 gm/250 ml-0.9% NaCl (Vancomycin/0.9 % Sod Chloride) 1.25 Gm/250 Ml Plast..bag 1.25 Gm IV Q12HR 42 Days Piperacil-Tazobact 3.375 Gm Vl (Piperacillin Sodium/Tazobactam) 3.375 Gm Vial 3.375 Gm IV Q6HRS 42 Days Allergies Allergies: Coded Allergies: No Known Drug Allergies (Unverified , 01/19/20) Physical Exam General: Alert, Cooperative HEENT: Atraumatic Lungs: Normal air movement Heart: RRR Abdomen: Soft Extremities: Other (The left knee prior incision is now completely healed. There is no open wound or any eschar. There is no drainage. There is some prominence anteriorly which corresponds with the x-ray findings with the cement is prominent anteriorly. He has an intact extensor mechanism on examination. There is only a trace effusion on examination. The knee alignment appears slightly abnormal consistent with an antibiotic spacer which has not remained in an arthrodesed position but otherwise unremarkable. Distal neurovascular function is unremarkable and normal.) Skin: No rashes, No breakdown, No significant lesion Neuro: Normal speech, Normal tone, Sensation intact Vitals Vitals Vital Signs Date Time Temp Pulse Resp B/P (MAP) Pulse Ox O2 Delivery O2 Flow Rate FiO2 02/15/20 09:40 Room Air 02/15/20 09:24 97.6 87 16 159/74 96 97.6 Images Images X-rays today show the antibiotic spacer intact, and no evidence of femoral condyle or tibial condyle fracture or significant bone loss compared to the immediate postop x-ray. VTE Prophylaxis Ordered VTE Prophylaxis Devices: Yes VTE Pharmacological Prophylaxi: Yes Assessment/Plan Assessment/Plan He had a previously infected left total knee arthroplasty. I believe infection has been eradicated, and he now has an antibiotic spacer with no evidence of infection. My recommendation is revision total knee arthroplasty, stemmed components. There is a higher risk of infection then there would be with a primary knee arthroplasty. Current research indicates that several months of postoperative oral antibiotics are useful to help prevent reinfection or other complications. He stated understanding of the risks benefits and alternatives and desires to proceed. Justifications for Admission Other Justification JASON JOSE MD Feb 15, 2020 10:32
[2020-02-15] MEDS ORDERED: SEVOFLURANE > 120 MINUTES. IH ONE (10:37)
[2020-02-15] MEDS ORDERED: LIDOCAINE 2% PF 5 ML VIAL. ONE (10:37)
[2020-02-15] MEDS ORDERED: PROPOFOL 10 MG/ML (20ML) VIAL. IV ONE (10:37)
[2020-02-15] MEDS ORDERED: ONDANSETRON PF 4 MG/2 ML VIAL. ONE (10:37)
[2020-02-15] MEDS ORDERED: DEXAMETHASONE SOD PHOS 4 MG/ML VIAL ONE (10:37)
[2020-02-15] MEDS ORDERED: VANCOMYCIN 1 GM VIAL. ONE ×2 (10:58→10:59)
[2020-02-15] MEDS ORDERED: TOBRAMYCIN POWDER 1.2 GM VIAL. ONE (10:59)
[2020-02-15] MEDS ORDERED: ceFAZolin SODIUM IV Push 1 GM VIAL. IVP ONE (12:05)
[2020-02-15] MEDS ORDERED: PROCHLORPERAZINE 10 MG/2 ML VIAL. ONE (13:01)
[2020-02-15] MEDS ORDERED: fentaNYL PF VIAL 100 MCG/2 ML VIAL ONE (13:01)
[2020-02-15] MEDS: IV NORMAL SALINE 1000ML BAG 1,000 ML IV SCH (13:03)
--- NOTE | 2020-02-15 13:03 | PDOC4 ---
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 Complications: none Drains: Hemovac plus pain catheter Tourniquet time: 65 minutes Implants used: Riley and Nephew size 5 left Legion Oxinium constrained femoral component, straight 15 mm x 160 mm Legion press-fit stem (femur) 4 mm Legion offset surgery technician (femur), size 4 left root Legion revision tibial baseplate, straight 12 mm x 160 mm Legion press-fit stem (tibia), size 3-415 mm Sowmya II constrained articular insert. Indications for Procedure: This 64-year-old man had index left total knee arthroplasty August 03, 2019 for osteoarthritis. He developed hematoma and had irrigation of hematoma on August 06, 2019. He then developed evidence of infection later, and had also resumed smoking. Cotinine was positive on December 07. The index knee was explanted on 12/07/2019, and an antibiotic spacer was placed. He was on IV antibiotics for 6 weeks, and then off antibiotics for 2 weeks. Recent cultures were taken which showed no growth. I believe infection has been eradicated. I have again advised him to stop smoking. He is here today for conversion/revision total knee arthroplasty, converting from the antibiotic spacer. This will require stemmed revision components; primary components would be insufficient for fixation. He and I have discussed potential risks of the surgery which include infection, neurovascular injury, bleeding, blood clots, recurrent or persistent infection, instability, stiffness, or other potential surgical or anesthetic complications. All of his questions about surgery were answered and he desires to proceed. Written consent was obtained. Procedure in Detail: The patient was identified in the preoperative holding area. The correct left lower extremity was marked by me. The patient was taken to the operating room where general anesthesia was used. The patient was positioned supine on the operating table. Preoperative antibiotics were given intravenously. A timeout procedure was performed. A tourniquet was used on the upper thigh. The limb was thoroughly scrubbed from the tourniquet to the ankle with Chlorhexidine, then dried, and then ChloraPrep was used. I used the [employer] Toga personal exhaust ventilated hoods system, as did my internal medicine physician assistant, and the rv service technician. Sterile drapes were applied. An impervious stockinette and Ioban drape were used such that the skin was entirely covered. The limb was elevated to exsanguinate it and exsanguinated with an Esmarch bandage. The tourniquet was inflated to 300 mmHg. The previous incision was opened sharply with a 10 blade scalpel. Bovie electrocautery was used for hemostasis. A medial parapatellar arthrotomy was created along the line of the previous arthrotomy. Slightly bloody synovial fluid was noted, and was captured into a sterile container and sent in a specimen cup as above synovial fluid culture. There is no evidence of infection. The previous cement spacer was now removed with cement osteotomes by breaking the spacer and removing it piecemeal. The patella was assessed and felt too thin to allow resurfacing. Extensive synovectomy was performed with a 10 blade scalpel and with electrocautery. Cement fragments were removed. The bone was debrided. There is no evidence of current infection. The tibia was prepared first. An intramedullary reamer was used until intramedullary chatter was achieved, at 12 mm. The intramedullary alignment guide was used, and checked with an extramedullary alignment jovani. A freshening cut was made at the proximal tibia, and the tibia was sized. No offset was needed, and trial components showed satisfactory alignment and satisfactory joint line. Next the femur was prepared. Intramedullary reaming was performed until intramedullary chatter was achieved. An offset surgery technician was required. The trial femoral component was now assembled. Saline irrigation with the Interpulse land resource specialist was used in the canal and around the femur, and then the trial femoral component was applied. I then applied different thicknesses of trial polyethylene, ending with a 15 mm constrained insert with good stability and with range of motion 0 to 120 degrees. Betadine irrigation was used in the knee. The [employer] Interpulse land resource specialist was used and copious saline irrigation was used throughout the knee and the femoral and tibial canals. The final implants were now opened on the back table, and assembled on the back table. . A vacuum cement mixing device was used, and I used 3 packages of Riley and Nephew Rally HV cement, along with 2 g of vancomycin and 2.4 g of tobramycin. The cement gun was used. The final components were cemented, starting with the tibia, and next the femur, and a trial polyethylene while the cement hardened. An additional dosage of tranexamic acid was given intravenously. The tourniquet was released. Electrocautery was used for hemostasis. Periarticular injection was used. Excess bone cement was removed with a cement osteotome. Final saline irrigation was used. The final polyethylene was chosen and inserted. A Hemovac drain and pain catheter were placed. Intra-wound topical Vancomycin 1 gm was used. The capsule was next reapproximated with #1 Vicryl suture in a [id number] fashion. Next #1 Stratafix suture was used in a running fashion for a watertight closure of the capsulotomy. The subcutaneous closure was with #2-0 Vicryl by my dental hygiene administrative assistant. My dental hygiene administrative assistant then reapproximated the skin with tomeka. My dental hygiene administrative assistant applied Acticoat and a MARCOS dressing. Needle and sponge counts were correct. There were no apparent complications. The patient returned to the recovery room in stable condition. . JASON GREEN MD Feb 15, 2020 13:03
[2020-02-15] MEDS: fentaNYL PF VIAL 100 MCG/2 ML VIAL IV PRN ×2 (13:07→13:20)
[2020-02-15] MEDS ORDERED: PROCHLORPERAZINE 5 MG TABLET. PO PRN (13:15)
[2020-02-15] MEDS ORDERED: MORPHINE SULFATE 2 MG/ML VIAL. IVP PRN (13:15)
[2020-02-15] MEDS ORDERED: CALCIUM CARBONATE 500 MG TAB.CHEW PO PRN (13:15)
[2020-02-15] MEDS ORDERED: 0.9 % SODIUM CHLORIDE 10 ML DISP.SYRIN. IV PRN (13:15)
[2020-02-15] MEDS ORDERED: diphenhydrAMINE 50 MG/ML VIAL IVP PRN (13:15)
[2020-02-15] MEDS ORDERED: METOCLOPRAMIDE HCL 10 MG/2 ML VIAL. IVP PRN (13:15)
[2020-02-15] MEDS ORDERED: MORPHINE SULFATE 4 MG/ML VIAL. IVP PRN (13:15)
[2020-02-15] MEDS ORDERED: DEXTROSE 50% 25 GM / 50ML DISP.SYRIN. IV PRN (13:15)
[2020-02-15] MEDS ORDERED: ZOLPIDEM 5 MG TABLET. PO PRN (13:15)
[2020-02-15] MEDS ORDERED: fentaNYL PF VIAL 100 MCG/2 ML VIAL IVP PRN ×2 (13:15)
--- NOTE | 2020-02-15 13:27 | RAD ---
INDICATION: Reason: LEFT KNEE PRE-OP FILMS PER DR JOSE / Spl. Instructions: / History: COMPARISON: December 07, 2019 IMPRESSION: Left knee: 2 views obtained. Postoperative changes to the knee with cement seen. There is also swelling of the soft tissues including within the prepatellar region as well as joint effusion. A new fracture line is not seen. The prepatellar swelling has increased from prior. Electronically signed by: Kael Ashford MD (02/15/2020 1:24 PM) [id number]
--- NOTE | 2020-02-15 13:42 | RAD ---
2 view study left knee Clinical indications: Postoperative study FINDINGS: Total left knee arthroplasty is evident which is well aligned. No acute fracture or lytic process is seen. IMPRESSION: Total left knee arthroplasty. Electronically signed by: German Goldman MD (02/15/2020 1:38 PM) [id number]
--- NOTE | 2020-02-15 15:00 | NUR ---
received from recovery. He is alert and oriented x 4 . at bedside. brace(immobilizer) to left knee. His original surgery was in June. he has good motion, sensation and pulses bilateral lower extremities.
[2020-02-15] MEDS: ONDANSETRON PF 4 MG/2 ML VIAL. IVP SCH ×2 (18:00→22:58)
[2020-02-15] MEDS: KETOROLAC 30MG VIAL 30 MG, BUPIVACAINE MPF 0.25% 20 ML, EPINEPHrine 0.5 MG in TOTAL VOL... INT ART SCH (18:21)
[2020-02-15] MEDS: ONDANSETRON ODT 4 MG TAB.RAPDIS. PO SCH ×2 (18:23→22:59)
[2020-02-15] MEDS: oxyCODONE/APAP 10/325 1 TAB TABLET PO PRN (18:23)
[2020-02-15] MEDS: ASPIRIN ENTERIC COATED 325 MG TABLET.DR. PO SCH (21:50)
[2020-02-16 02:39] VITALS: BP 124/76
[2020-02-16] MEDS: oxyCODONE/APAP 10/325 1 TAB TABLET PO PRN ×4 (04:39→18:03)
[2020-02-16] MEDS ORDERED: MAGNESIUM HYDROXIDE 2,400 MG/30 ML ORAL.SUSP. PO PRN (06:00)
[2020-02-16] MEDS: ONDANSETRON PF 4 MG/2 ML VIAL. IVP SCH ×2 (06:12→12:00)
[2020-02-16] MEDS: ONDANSETRON ODT 4 MG TAB.RAPDIS. PO SCH ×2 (06:12→12:00)
[2020-02-16] MEDS: KETOROLAC 30MG VIAL 30 MG, BUPIVACAINE MPF 0.25% 20 ML, EPINEPHrine 0.5 MG in TOTAL VOL... INT ART SCH (06:12)
[2020-02-16 06:47] VITALS: BP 138/77
[2020-02-16 06:52] LABS: HEMATOCRIT 37.8 % (39.0-53.0); HEMOGLOBIN 12.5 g/dL (13.0-17.5)
--- NOTE | 2020-02-16 08:00 | NUR ---
resting in bed. he has good motion, sensation and pulses bilateral lower extremities. he is rating his pain between 5-6 this am. appetite good. Hemovac patent. MARCOS intact. IAC was not able to function.
[2020-02-16] MEDS: CELECOXIB 100 MG CAPSULE. PO SCH (08:35)
[2020-02-16] MEDS: MULTIVITAMIN with MINERAL TABLET. PO SCH (08:35)
[2020-02-16] MEDS: SENNOSIDES/DOCUSATE 8.6/50MG TABLET. PO SCH (08:35)
[2020-02-16] MEDS: ASPIRIN ENTERIC COATED 325 MG TABLET.DR. PO SCH ×2 (08:35→20:54)
--- NOTE | 2020-02-16 08:37 | PDOC ---
ORTHO PROGRESS NOTES DATE: 02/16/20 TIME: 08:34 Subjective Patient states that his pain is 5 on a scale of 1-10. Post-op Day: 1 Procedure Revision left total knee Vitals Vital Signs Date Time Temp Pulse Resp B/P (MAP) Pulse Ox O2 Delivery O2 Flow Rate FiO2 02/16/20 06:47 97.9 55 18 138/77 (97) 95 Room Air 97.9 02/16/20 05:39 2.0 Labs Laboratory Tests Test 02/16/20 04:35 Hemoglobin 12.5 g/dL (13.0-17.5) Hematocrit 37.8 % (39.0-53.0) Mean Corpuscular Hemoglobin Concent 33 g/dL (31-37) C-Reactive Protein, Quantitative 4.4 mg/L (0-3.3) Laboratory Tests Test 02/16/20 04:35 Hemoglobin 12.5 g/dL (13.0-17.5) Hematocrit 37.8 % (39.0-53.0) Mean Corpuscular Hemoglobin Concent 33 g/dL (31-37) C-Reactive Protein, Quantitative 4.4 mg/L (0-3.3) Notes Awake and alert eating breakfast in bed Assessment and Plan Postop day #1 status post revision left total knee arthroplasty Motor and sensation intact distally at the left foot and ankle. Dressing dry and intact. Physical therapy today. EPIFANIO PALACIOS APRN Feb 16, 2020 08:37
[2020-02-16 12:00] VITALS: BP 123/69
[2020-02-16] MEDS ORDERED: ONDANSETRON PF 4 MG/2 ML VIAL. IVP PRN (12:00)
[2020-02-16] MEDS ORDERED: ONDANSETRON ODT 4 MG TAB.RAPDIS. PO PRN (12:00)
[2020-02-16] MEDS: IV NORMAL SALINE 1000ML BAG 1,000 ML IV SCH (12:28)
--- NOTE | 2020-02-16 15:00 | NUR ---
original surgical dressing removed. MARCOS intact and has a small amount dried blood on edge. "last time the tape irritated his skin" no overt rash, redness blisters or other signs of irritation. Hemovac removed and tolerated fair, no bleeding noted. IAC was split apart near the distal end . the blue tip was coiled along the surface of the skin under tape.; appears intact (blue tip). IAC was never patent and medications never infused.
[2020-02-16] MEDS ORDERED: BISACODYL 10 MG SUPP.RECT. PR PRN (16:00)
[2020-02-16 18:04] VITALS: BP 130/76
[2020-02-17] MEDS: oxyCODONE/APAP 10/325 1 TAB TABLET PO PRN ×4 (00:32→17:59)
[2020-02-17 06:06] LABS: HEMATOCRIT 37.5 % (39.0-53.0); HEMOGLOBIN 12.5 g/dL (13.0-17.5)
[2020-02-17 06:26] VITALS: BP 138/82
[2020-02-17] MEDS: SENNOSIDES/DOCUSATE 8.6/50MG TABLET. PO SCH (13:02)
[2020-02-17] MEDS: MULTIVITAMIN with MINERAL TABLET. PO SCH (13:02)
[2020-02-17] MEDS: ASPIRIN ENTERIC COATED 325 MG TABLET.DR. PO SCH ×2 (13:02→20:28)
[2020-02-17] MEDS: CELECOXIB 100 MG CAPSULE. PO SCH (13:02)
[2020-02-17] MEDS: IV NORMAL SALINE 1000ML BAG 1,000 ML IV SCH (13:03)
[2020-02-17 18:00] VITALS: BP 134/77
[2020-02-18] MEDS: oxyCODONE/APAP 10/325 1 TAB TABLET PO PRN ×4 (01:15→15:54)
[2020-02-18 05:27] VITALS: BP 148/80
[2020-02-18 05:42] LABS: HEMATOCRIT 38.4 % (39.0-53.0); HEMOGLOBIN 12.9 g/dL (13.0-17.5)
[2020-02-18] MEDS: MULTIVITAMIN with MINERAL TABLET. PO SCH (07:56)
[2020-02-18] MEDS: CELECOXIB 100 MG CAPSULE. PO SCH (07:57)
[2020-02-18] MEDS: SENNOSIDES/DOCUSATE 8.6/50MG TABLET. PO SCH (07:57)
[2020-02-18] MEDS: ASPIRIN ENTERIC COATED 325 MG TABLET.DR. PO SCH (07:57)
[2020-02-18 14:30] VITALS: BP 159/90
--- NOTE | 2020-02-18 14:35 | PDOC ---
PROGRESS NOTES Date of Service DATE: 02/18/20 TIME: 14:31 Subjective Subjective He is doing well. Results of surgery discussed. Objective Vital Signs Vital Signs Date Time Temp Pulse Resp B/P (MAP) Pulse Ox O2 Delivery O2 Flow Rate FiO2 02/18/20 09:00 93 Room Air 02/18/20 07:56 20 02/18/20 05:27 98.1 58 148/80 (102) 98.1 02/16/20 05:39 2.0 Physical Exam Dressing had to be changed because the Sydnee was saturated. He now has an Aquasol dressing in place. No evidence of infection. Calf is soft and nontender. He has the knee immobilizer as instructed. Labs RUN DATE: 02/16/20 [facility] LAB *LIVE* PAGE 1 RUN TIME: 1034 Specimen Inquiry PATIENT: SUKH ÁLVAREZ ACCT: [id number] LOC: [address] [place] [address] U: [id number] AGE/SX: 64/M ROOM: 460 RE02/15/[address]: JASON JOSE MD : 1955 BED: 1 DIS: STATUS: ADM IN TLOC: SPEC #: [id number] JUAN DAVID: 02/15/20 STATUS: RES REQ #: [id number] RECD: 02/15/20-[address] [facility] [address]: JASON JOSE MD SOURCE: [facility] ENTR: 02/15/20-1111 [facility] DR: MARGIE DAVID MD SPDC: ORDERED: ANAER/AEROB/GS Procedure Result GRAM STAIN Final Final NO ORGANISMS SEEN. SQUAMOUS EPI CELL:NOT APPLICABLE PMN (WBCs):RARE Unless otherwise specified, Testing Performed by: [address] [address] For Inquires, the Physician may contact the Microbiology department at [phone] ANAEROBIC-AEROBIC CULTURE Preliminary Preliminary No Growth on 02/16/20 at 1029 Unless otherwise specified, Testing Performed by: [address] [address] For Inquires, the Physician may contact the Microbiology department at [phone] END OF REPORT RUN DATE: 02/15/20 [facility] LAB *LIVE* PAGE 1 RUN TIME: 1127 Specimen Inquiry PATIENT: SUKH ÁLVAREZ ACCT: [id number] LOC: [facility] U: [id number] AGE/SX: 64/M ROOM: [facility] RE02/15/[address]: JASON JOSE MD : 1955 BED: 2 DIS: STATUS: ADM IN TLOC: SPEC #: [id number] JUAN DAVID: 02/15/20-1100 STATUS: COMP REQ #: [id number] RECD: 02/15/20-[address]: JASON JOSE MD SOURCE: [facility] ENTR: 02/15/20-[address]: MARGIE DAVID MD SPDESC: LEFT ORDERED: GS COMMENTS: LEFT SYNOVIAL FLUID FROM SURGERY Procedure Result ------- ----- GRAM STAIN Final WBCS OCCASIONAL RBCS MANY ORGANISMS NONE SEEN COMMENTS CALLED TO CANDELARIO IN SURGERY AT 1127 BY RV. END OF REPORT Laboratory Tests Test 02/17/20 04:47 02/18/20 05:10 Hemoglobin 12.5 g/dL (13.0-17.5) 12.9 g/dL (13.0-17.5) Hematocrit 37.5 % (39.0-53.0) 38.4 % (39.0-53.0) Mean Corpuscular Hemoglobin Concent 33 g/dL (31-37) 34 g/dL (31-37) Laboratory Tests Test 02/18/20 05:10 Hemoglobin 12.9 g/dL (13.0-17.5) Hematocrit 38.4 % (39.0-53.0) Mean Corpuscular Hemoglobin Concent 34 g/dL (31-37) Assessment Assessment POD# 3 revision TKA, the second portion of a two-stage revision Plan Plan of Care Discharge planning. Continue aspirin for DVT prophylaxis. I will start oral doxycycline, which I plan to use for about 3 months or more which research shows decreases the risk of reoperations. He may weight-bear as tolerated. My range of motion plan is 0 to 30 degrees for the first 2 weeks, advance to 0 to 60 degrees during weeks 3 and 4, 0-90 degrees weeks 5 and 6, and then may progress ROM without restrictions. Justicifation of Admission Dx: Justifications for Admission: Justification of Admission Dx: Yes Sepsis: Infection JASON JOSE MD Feb 18, 2020 14:35
--- NOTE | 2020-02-18 14:47 | PDOC3 ---
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 Z89.529 Aftercare after left knee joint replacement surgery Z96.652 Brief Hospital Course Allergies Allergies Coded Allergies Type Severity Reaction Last Updated Verified No Known Drug Allergies 01/19/20 No Vital Signs Vital Signs Date Time Temp Pulse Resp B/P (MAP) Pulse Ox O2 Delivery O2 Flow Rate FiO2 02/18/20 09:00 93 Room Air 02/18/20 07:56 20 02/18/20 05:27 98.1 58 148/80 (102) 98.1 Lab Results Laboratory Tests Test 02/17/20 04:47 02/18/20 05:10 Hemoglobin 12.5 g/dL (13.0-17.5) 12.9 g/dL (13.0-17.5) Hematocrit 37.5 % (39.0-53.0) 38.4 % (39.0-53.0) Mean Corpuscular Hemoglobin Concent 33 g/dL (31-37) 34 g/dL (31-37) Laboratory Tests Test 02/18/20 05:10 Hemoglobin 12.9 g/dL (13.0-17.5) Hematocrit 38.4 % (39.0-53.0) Mean Corpuscular Hemoglobin Concent 34 g/dL (31-37) Brief Hospital Course 64 year old who presented with absent total knee arthroplasty, and antibiotic spacer in place, as part of a two-stage revision for previous infection. There is no evidence of current infection. The patient underwent revision total knee arthroplasty under general anesthesia the day of admission. Perioperative antibiotics and DVT prophylaxis were used. Postoperatively physical therapy and case management were consulted. The patient progressed and is stable for discharge. Discharge Information Condition at Discharge: Stable Follow Up: Weeks Disposition/Orders: D/C to Home Scheduled Aspirin (Aspirin Ec), 325 MG PO BID Celecoxib (Celebrex), 400 MG PO X1, (Reported) Piperacillin Sodium/Tazobactam (Piperacil-Tazobact 3.375 Gm Vl), 3.375 GM IV Q6HRS, (Reported) Vancomycin/0.9 % Sod Chloride (Vanco 1.25 gm/250 ml-0.9% NaCl), 1.25 GM IV Q12HR, (Reported) Scheduled PRN Oxycodone/Apap 10-325 (Percocet 10-325 Mg Tablet ), 1 TAB PO PRN Q6HRS PRN for PAIN Patient Instructions Patient Instructions Continue to weight bearing as tolerated with walker. May remove knee brace and flex knee to 30 degrees. At 2 weeks postop may advance to 60 degrees of flexion. Continue aspirin for DVT prophylaxis. Prescription for doxycycline 100 mg twice a day was sent to [facility] at [address] [place] [address] Av. Continue oral doxycycline, likely for 3 months. Prescription for Percocet 10/325 was also sent to [facility] at [address] [place] [address]. Office follow-up with me on Friday. Justicifation of Admission Dx: Justifications for Admission: Justification of Admission Dx: Yes Sepsis: Infection JASON JOSE MD Feb 18, 2020 14:47
--- NOTE | 2020-02-18 16:29 | NUR ---
reviewed discharge instructions with Azar. he is to wear immobilizer as a reminder not to bend knee greater than 30 degrees. original surgical dressing removed and a Aquacel Ag applied. tomeka intact. cleansed with ChloraPrep. medicated with Percocet for the ride home. picking up . explained would be on aspirin 325 mg 2 x's a day for another 30 days and will be on a oral antibiotic. [facility] called into [facility] per Dr. Green. no further questions. dismissed to home with outpatient therapy . f/u appt with Dr. Green on the and PT is Friday.
== END 2020-02-18 16:20 | disposition home or self-care (01) | DRG 468 ==
LOC: OPSVCIP 08:32 → 4 SOUTHEST 14:43
PROVIDERS: ADMIT Orthopaedic Surgery; ATTEND Orthopaedic Surgery
PROC: 0SPD08Z Removal of Spacer from Left Knee Joint, Open Approach (ICD-10-PCS; 2020-02-15)
PROC: 0SRD069 Replacement of Left Knee Joint with Oxidized Zirconium on Polyethylene Synthetic Substitute, Cemented, Open Approach (ICD-10-PCS; principal; 2020-02-15 10:00)
DX: Z47.33 Aftercare following explantation of knee joint prosthesis (principal); F17.200 Nicotine dependence, unspecified, uncomplicated; Z83.3 Family history of diabetes mellitus; Z90.49 Acquired absence of other specified parts of digestive tract
CPT/HCPCS: 36415; 73560; 85014; 85018; 86140; 86850; 86900; 86901; 87071; 87075; 87102; 87116; A7015; C1713; J0171; J0690; J0780; J1100; J1885; J2270; J2405; J2704; J2795; J3010; J3260; J3370; J3490; J7030; J7120; 97116-GP; 97150-GP; 97530-GO; 97530-GP; 97535-GO; A4461; C1769; G0378

== ENCOUNTER 2021-06-21 07:18 | Day surgery (SDC) | payer MEDICARE ==
[~2021-06-21] VITALS: Ht 165.1 cm; Wt 77.0 kg
[~2021-06-21 07:18] MED LIST changes: -ACETAMINOPHEN 500 MG TABLET PO PRN; +CELE200C PO; -CELECOXIB 100 MG CAPSULE. PO PRN; +HYDROmorphone 2 MG/ML INJ. IVP PRN; -HYDROmorphone 2 MG/ML VIAL IV PRN; -LIDOCAINE 1% PF 2 ML VIAL. ID PRN; +MORPHINE SULFATE 2 MG/ML INJ. IVP PRN; -MORPHINE SULFATE 2 MG/ML VIAL. IV PRN; -MORPHINE SULFATE 5 MG, KETOROLAC 30MG VIAL 30 MG, ROPIVacaine 0.5% PF 60 ML, EPINEPHrin... INT ART ONE; -ONDANSETRON PF 4 MG/2 ML VIAL. IV PRN; -PROCHLORPERAZINE 10 MG/2 ML VIAL. IV PRN; +PROCHLORPERAZINE 10 MG/2 ML VIAL. IVP PRN; -TOBRAMYCIN POWDER 1.2 GM VIAL. ONE; -TRANEXAMIC ACID 1,000 MG in IV NS 50ML -- 1ST BAG INJ ONE; -TRANEXAMIC ACID 1,000 MG in IV NS 50ML -- 2ND BAG INJ ONE; -VANC1.2514 IV; +VANC1.2523 IV; -VANCOMYCIN 1 GM VIAL. ONE; +ceFAZolin SODIUM IV Push 1 GM VIAL. IVP PRN; -fentaNYL PF VIAL 100 MCG/2 ML VIAL IV PRN; +fentaNYL PF VIAL 100 MCG/2 ML VIAL IVP PRN
[2021-06-21 07:41] VITALS: BP 152/87
[2021-06-21] MEDS ORDERED: HYDR-2761 PO (07:59)
--- NOTE | 2021-06-21 08:00 | DISCH ---
DISCHARGE INSTRUCTIONS Condition on Discharge Condition on Discharge: Stable Activity After Discharge Activity Instructions for Disc: Other, see below Bathing Instructions: Shower-keep dressing dry, No Tub Bath until see Lifting Instructions after Dis: No heavy lifting, No pulling or pushing, Do not lift >10 pounds Driving Instructions after Dis: Do not drive Weight Bearing Status after Di: As tolerated Diet after Discharge Diet after Discharge: Regular Wound Incision Care Wound/Incision Care: Ice to area for comfort, Keep wound/cast CDI, Change dressing Checks after Discharge Checks after discharge: Check blood sugar, ac/hs Contacting the DRDiane after DC Call your doctor for: Concerns you may have Follow-Up Follow up with: Saad in 2 wks MELVI VEGAS II, MD Jun 21, 2021 08:00
--- NOTE | 2021-06-21 08:38 | PDOC4 ---
Operative Note Operative Note Date of procedure: 06/21/21 Surgeon: Larry Vegas Senior Manufacturing Supervisor: Wm Padilla Preoperative diagnosis: Left carpal tunnel syndrome Postoperative diagnosis: Same Procedure performed: Open left carpal tunnel release Anesthesia: General Findings: Normal-appearing median nerve Blood loss: 2 mL Tourniquet time: Less than 15-minute Complications: None Reason for procedure: Patient is very pleasant individual who has had long- standing symptoms consistent with their electromyographically proven EMG diagnosis of carpal tunnel syndrome. We had tried and failed conservative therapies and had a discussion of the risks, benefits, alternatives to the above surgery and they wished to proceed. Description of procedure: Patient was greeted in the preoperative area by myself for the correct extremity was verified and marked. They were then taken back to the operative suite, antibiotics were started as they were brought back. Once in the operating room, patient was transferred gently supine to the operating room table. The hand board attached and was applied to the operating room table. He underwent successful induction of a general anesthetic. The left upper extremity was then prepped and draped in our usual sterile fashion and we conducted our standard preoperative timeout.after this, I made an incision over the transverse carpal ligament from the distal wrist crease into the palm through a palmar crease. I incised skin with a scalpel and dissected subcutaneous tissue with a curved hemostat. I used bipolar cautery for hemostasis. Identified the palmar fascia and incised this in line with the skin incision and then placed a self retaining retractor. I identified the transverse carpal ligament and incised thi s with a scalpel. I then placed a Ragnell retractor in the distal portion of the incision, spread above and below small remaining portion of the transverse carpal ligament and transected this with a tenotomy scissors into the palm. After this, I repeated this maneuver and an ulnar directed fashion to release the distal antebrachial fascia at the proximal portion of the incision. I then palpated along the course of the median nerve with the tip of the tenotomies to help ensure that accomplished a complete release. The operative field was then irrigated out with sterile saline. After this, skin was closed with 3-0 nylon in a mattress fashion. A sterile bulky soft dressing was then applied to the patients hand and wrist. The tourniquet was let down, hemostasis had been achieved with electrocautery. Patient tolerated surgery well. No complications. At the conclusion, they were awakened and transferred gently supine to the recovery room cart and taken to the PACU in a stable and extubated condition. Postoperative plan is to discharge patient home. Frequent range of motion at digits and wrist was encouraged. The patient was instructed not to lift anything heavy. We will see him back in 2 weeks, sooner should a problem arise. LARRY VEGAS II, MD Jun 21, 2021 08:38
[2021-06-21] MEDS ORDERED: BUPIVACAINE MPF 0.5% 30 ML VIAL. ONE (08:46)
[2021-06-21] MEDS ORDERED: LIDOCAINE 1% Multi-Dose 20 ML VIAL. ONE (08:46)
[2021-06-21] MEDS ORDERED: LIDOCAINE 2% PF 5 ML VIAL. ONE (08:50)
[2021-06-21] MEDS ORDERED: ONDANSETRON PF 4 MG/2 ML VIAL. ONE (08:50)
[2021-06-21] MEDS ORDERED: PROPOFOL 10 MG/ML (20ML) VIAL. IV ONE (08:50)
[2021-06-21] MEDS ORDERED: fentaNYL PF VIAL 100 MCG/2 ML VIAL ONE (08:50)
[2021-06-21] MEDS ORDERED: DEXAMETHASONE SOD PHOS 4 MG/ML VIAL ONE (08:50)
[2021-06-21] MEDS ORDERED: MIDAZOLAM HCL/PF 2 MG/2 ML VIAL. ONE (08:51)
[2021-06-21] MEDS ORDERED: HYDROcodone/APAP 5/325MG 1 TAB TABLET PO ONE (09:30)
[2021-06-21 10:15] VITALS: BP 127/64
== END 2021-06-21 10:45 | disposition home or self-care (01) ==
LOC: SURG 07:18
PROVIDERS: ATTEND Orthopaedic Surgery Sports Medicine
DX: G56.02 Carpal tunnel syndrome, left upper limb (principal); J44.9 Chronic obstructive pulmonary disease, unspecified; E66.9 Obesity, unspecified; M19.90 Unspecified osteoarthritis, unspecified site; Z90.49 Acquired absence of other specified parts of digestive tract; Z98.890 Other specified postprocedural states; Z79.899 Other long term (current) drug therapy; Z87.891 Personal history of nicotine dependence; Z88.8 Allergy status to other drugs, medicaments and biological substances
CPT/HCPCS: 64721; A4930; A6223; A6402; A6449; J0690; J1100; J2250; J2405; J2704; J3010; J3490

== ENCOUNTER → 2021-07-20 | Outpatient (CLI) | payer MEDICARE ==
[2021-06-21 10:15] VITALS: BP 127/64
[~2021-07-20] MED LIST changes: +HYDR-2761 PO; -HYDROmorphone 2 MG/ML INJ. IVP PRN; -IV RINGERS,LACTATED 1000ML 1,000 ML IV SCH; -MORPHINE SULFATE 2 MG/ML INJ. IVP PRN; -PROCHLORPERAZINE 10 MG/2 ML VIAL. IVP PRN; -ceFAZolin SODIUM IV Push 1 GM VIAL. IVP PRN; -fentaNYL PF VIAL 100 MCG/2 ML VIAL IVP PRN
== END ==
LOC: LAB 10:03
PROVIDERS: ATTEND Orthopaedic Surgery Sports Medicine
DX: Z01.812 Encounter for preprocedural laboratory examination (principal); Z20.822 Contact with and (suspected) exposure to COVID-19
CPT/HCPCS: U0003

== ENCOUNTER 2021-07-24 08:57 | Day surgery (SDC) | payer MEDICARE ==
[~2021-07-24] VITALS: Ht 165.1 cm; Wt 77.5 kg
[~2021-07-24 08:57] MED LIST changes: +HYDROmorphone 2 MG/ML INJ. IVP PRN; +IV RINGERS,LACTATED 1000ML 1,000 ML IV SCH; +MORPHINE SULFATE 2 MG/ML INJ. IVP PRN; +PROCHLORPERAZINE 10 MG/2 ML VIAL. IVP PRN; +fentaNYL PF VIAL 100 MCG/2 ML VIAL IVP PRN
[2021-07-24 09:18] VITALS: BP 157/85
[2021-07-24] MEDS ORDERED: PROPOFOL 10 MG/ML (20ML) VIAL. IV ONE (09:40)
[2021-07-24] MEDS ORDERED: DEXAMETHASONE SOD PHOS 4 MG/ML VIAL ONE (09:41)
[2021-07-24] MEDS ORDERED: fentaNYL PF VIAL 100 MCG/2 ML VIAL ONE (09:41)
[2021-07-24] MEDS ORDERED: ONDANSETRON PF 4 MG/2 ML VIAL. ONE (09:41)
[2021-07-24] MEDS ORDERED: LIDOCAINE 2% PF 5 ML VIAL. ONE (09:41)
[2021-07-24] MEDS ORDERED: KETOROLAC 30 MG/ML VIAL. ONE (09:42)
[2021-07-24] MEDS ORDERED: BUPIVACAINE MPF 0.5% 30 ML VIAL. ONE (10:29)
[2021-07-24] MEDS ORDERED: LIDOCAINE 1% PF 30 ML VIAL. ONE (10:29)
[2021-07-24] MEDS ORDERED: HYDR-2761 PO (11:48)
--- NOTE | 2021-07-24 11:49 | DISCH ---
DISCHARGE INSTRUCTIONS Condition on Discharge Condition on Discharge: Stable Activity After Discharge Activity Instructions for Disc: Other, see below Bathing Instructions: Shower-keep dressing dry, No Tub Bath until see Lifting Instructions after Dis: No heavy lifting, No pulling or pushing, Do not lift >10 pounds Driving Instructions after Dis: Do not drive Weight Bearing Status after Di: As tolerated Diet after Discharge Diet after Discharge: Regular Wound Incision Care Wound/Incision Care: Ice to area for comfort, Keep wound/cast CDI, Change dressing Checks after Discharge Checks after discharge: Check blood sugar, ac/hs Contacting the DRDiane after DC Call your doctor for: Concerns you may have Follow-Up Follow up with: Saad in 2 wks Treatment/Equipment after DC Adaptive Equipment Issued: None MELVI VEGAS II, MD Jul 24, 2021 11:49
--- NOTE | 2021-07-24 11:53 | PDOC4 ---
Operative Note Operative Note Date of procedure 07/24/2021 Surgeon: Larry Vegas Chip Tester: Wm Padilla Preoperative diagnosis: Right carpal tunnel syndrome Right fourth trigger finger Postoperative diagnosis: Same Procedure performed: Open right carpal tunnel release Open right fourth finger trigger finger release Anesthesia: General Findings: Erythematous appearing median nerve Tourniquet time: 50 minutes Blood loss: 2 mL Region of procedure: Patient is very pleasant 65-year-old who underwent left carpal tunnel with myself and it had a good early result and wished to proceed in a staged fashion with his right hand. We had a discussion of the risks benefits and alternatives and he elected proceed. Description of procedure: Patient was greeted in the preoperative area by myself or the correct extremity was verified and marked. He was taken to the operative suite and antibiotics were started as brought back. Once in the operating room, he was transferred gently supine to the operating table and secured to the bed with all pressure points padded. We then applied a nonsterile tourniquet. Right upper extremity was prepped and draped in our usual sterile fashion and we conducted our standard preoperative timeout. After this, the extremity was exsanguinated with an Esmarch and tourniquet of insufflated to 250 mmHg. I then began the procedure by making an incision in his palmar crease from his distal wrist crease into his palm. I dissected subcutaneous tissue with a hemostat, using bipolar cautery for hemostasis. I placed a self-retaining retractor and identified the palmar fascia. I incised this in line with the skin incision. I then identified the transverse carpal ligament and releases sharply. I placed a Ragnell retractor at the distal aspect of the incision and spread above and below small remaining portion of the transverse carpal ligament and released into the palm. I repeated this maneuver in an ulnar directed fashion to release the distal antebrachial fascia as well. I then directed my attention to making a transverse incision over his fourth metacarpal head and dissected subcutaneous tissue down to the level of the flexor tendon with a small curved hemostat. I identified the nodule in his flexor tendon and the A1 veronica I made sure there was no overlying nerve. I then released the A1 veronica with tenotomy scissors. I then delivered the flexor tendons from the operative field to help and tried accomplish a complete release. After this I irrigated both wounds out, the carpal tunnels surgery site was closed with 2-0 nylon in mattress fashion, the trigger finger site was closed with 3-0 nylon in a mattress fashion. Prior to wound closure all counts correct x2. No complications. At the inclusion the patient was placed into a sterile soft bulky dressing and awakened from anesthesia. He tolerated this well. He was then taken to the PACU in stable and extubated condition. Postoperative plan is to see me back in 2 weeks, sooner should a problem arise. LARRY VEGSA II, MD Jul 24, 2021 11:53
[2021-07-24] MEDS ORDERED: HYDROcodone/APAP 5/325MG 1 TAB TABLET PO ONE (12:15)
[2021-07-24 12:30] VITALS: BP 109/82
== END 2021-07-24 12:50 | disposition home or self-care (01) ==
LOC: SURG 08:57
PROVIDERS: ATTEND Orthopaedic Surgery Sports Medicine
DX: G56.01 Carpal tunnel syndrome, right upper limb (principal); M65.341 Trigger finger, right ring finger; J44.9 Chronic obstructive pulmonary disease, unspecified; E66.9 Obesity, unspecified; M19.90 Unspecified osteoarthritis, unspecified site; Z82.49 Family history of ischemic heart disease and other diseases of the circulatory system; Z79.899 Other long term (current) drug therapy; Z90.49 Acquired absence of other specified parts of digestive tract; Z96.652 Presence of left artificial knee joint; Z88.2 Allergy status to sulfonamides; Z83.3 Family history of diabetes mellitus; Z89.522 Acquired absence of left knee
CPT/HCPCS: 26055; 64721; J0690; J1100; J1885; J2405; J2704; J3010; J3490; A4452; A4657; A4930; A6223; A6402; A6448; A6452